=== PATIENT | male | born 1980 | race Caucasian/White ===

== ENCOUNTER → 2022-06-23 07:21 | Outpatient (CLI) | payer OTHER, MEDICAID, SELFPAY ==
[2022-06-23 08:29] LABS: Hemoglobin A1C% w Est Avg Glu 5.4 % (4.0-6.0)
[2022-06-23 08:54] LABS: Alanine Aminotransferase 118 IU/L (<50); Albumin 4.3 g/dL (3.5-5.0); Albumin Globulin Ratio 1.7 (1.0-2.8); Alkaline Phosphatase 61 U/L (38-126); Aspartate Aminotransferase 52 IU/L (17-59); BUN Creatinine Ratio 21.6 (6-22); Bilirubin Total 0.5 mg/dL (0.2-1.3); Blood Urea Nitrogen 16 mg/dL (9-20); Calcium 9.1 mg/dL (8.4-10.2); Carbon Dioxide 27 mmol/L (22-32); Chloride 101 mmol/L (98-107); Cholesterol 225 mg/dL (140-199); Estimated Glomerular Filt Rate > 60 mL/min (>60); Globulin 2.5 g/dL (1.7-4.1); Glucose 107 mg/dL (70-100); HDL Cholesterol 58 mg/dL (40-60); HEMOLYSIS < 15 (0-50); LDL Cholesterol Calculated 127 mg/dL (<100); Potassium 4.5 mmol/L (3.4-5.1); Sodium 137 mmol/L (137-145); Total Protein 6.8 g/dL (6.3-8.2); Triglycerides 202 mg/dL (35-150)
== END ==
PROVIDERS: PCP Family Medicine; Referring Provider Family Medicine; Visit Provider Family Medicine
DX: F07.81 Postconcussional syndrome (principal); I10 Essential (primary) hypertension; Z13.1 Encounter for screening for diabetes mellitus
CPT/HCPCS: 36415; 80053; 80061; 83036

== ENCOUNTER 2022-07-07 01:45 | Emergency (ER) | payer OTHER, MEDICAID, SELFPAY ==
[2022-07-07] VITALS (7 sets, daily range): BP systolic 124–154; BP diastolic 82–103; PULSE 59–72; RESP 4–18; TEMP 36.4; O2SAT 94–97; BMI 30.9
--- NOTE | 2022-07-07 02:06 | DI.RAD.S_ITS ---
PROCEDURE: XR CHEST 1V INDICATIONS: chest pain TECHNIQUE: One view of the chest was acquired. COMPARISON: None. FINDINGS: Surgical changes and devices: None. Lungs and pleura: Lungs are clear. No pleural effusions or pneumothorax. Mediastinum: Mediastinal contours appear normal. Heart size is normal. Bones and chest wall: No suspicious bony lesions. Overlying soft tissues appear unremarkable. IMPRESSION: No acute cardiopulmonary process. Dictated by: Kenn Fernández M.D. on 07/07/2022 at 8:10 Approved by: Kenn Fernández M.D. on 07/07/2022 at 8:11
--- NOTE | 2022-07-07 02:09 | ED.CHESTPAIN ---
HPI - Chest Pain General Chief Complaint: Chest Pain Stated Complaint: chest pain Time Seen by Provider: 07/07/22 01:58 Source: patient and family Mode of arrival: Ambulatory Limitations: no limitations History of Present Illness HPI narrative: Patient is a 41-year-old male history of concussion syndrome, hypertension presenting today with left-sided chest pain. He reports that he is had some stress he is working on some legal documents tonight something to do with his children. He was able to rest for couple of hours got up and was dressing again. reports that he was sleeping with his CPAP on when she thought he stopped breathing and then there might have been some shaking of his left arm. He then woke up with left sided chest discomfort which she describes as sharp and stabbing. It is nonradiating. He feels like his whole left body is numb and tingling. He sometimes feel like he is short of breath he is not nauseous or diaphoretic. Patient had this for. He reports that he just started losartan tonight with his 1st dose. He denies any tongue swelling lip swelling. Related Data Home Medications Medication Instructions Recorded Confirmed metoprolol succinate 25 mg 25 mg PO BID 06/22/22 06/22/22 tablet,extended release 24 hr Previous Rx's Medication Instructions Recorded losartan 25 mg tablet 25 mg PO DAILY blood pressure #90 07/05/22 tabs Allergies Allergy/AdvReac Type Severity Reaction Status Date / Time No Known Drug Allergies Allergy Unverified 06/22/22 09:55 Review of Systems Review of Systems ROS Unobtainable: All systems reviewed & are unremarkable except as noted in HPI and below Patient History Medical History Benign essential HTN MALLORIE on CPAP Post concussion syndrome Stress reaction Social History Smoking Status: Never smoker Smoking Status: Never smoker Substance Use Type: marijuana Exam Initial Vital Signs Initial Vital Signs: Vital Signs Temperature 97.5 F L 07/07/22 01:50 Pulse Rate 72 07/07/22 01:50 Respiratory Rate 18 07/07/22 01:50 Blood Pressure 154/103 H 07/07/22 01:50 Pulse Oximetry 97 07/07/22 01:50 Oxygen Delivery Method Room Air 07/07/22 01:50 GENERAL: Alert 41-year-old male and in [no acute] distress. HEENT: Head atraumatic,EOMI, pupils reactive, face symmetric, [moist] mucous membranes CARDIOVASCULAR: Regular rate and rhythm without murmurs, rubs or gallops. RESPIRATORY: Breath sounds equal bilaterally, no wheezes rales or rhonchi. ABDOMEN: Soft, nontender. Normoactive bowel sounds all 4 quadrants. No guarding or rebound. EXTREMITIES: Normal range of motion, no clubbing or edema. Neurovascularly intact NEUROLOGICAL: Alert and oriented x4.Normal gait and speech. Cranial nerves II through XII grossly intact. SKIN: Warm, dry, no laceration, no petechiae, no rashes or lesions. Scores HEART Score Heart Score history: Slightly Suspicious Heart Score EKG: Normal Heart Score Age: < 45 years old Heart Score risk factors: No known risk factors Heart Score troponin: < or = to normal limit Heart Score Total: 0 Course Orders Ordered: ED Orders 07/07/22 EKG-12 Lead Routine EKG-12 Lead Routine 07/07/22 01:50 Complete Blood Count AUTO DIFF Stat Comprehensive Metabolic Panel Stat Lipase Stat Magnesium Stat PTT Partial Thromboplastin Jamel Stat Prothrombin Time INR Stat Troponin & CK Cardiac Panel Stat 07/07/22 02:06 XR chest 1V Stat 07/07/22 03:55 Trop I [Troponin I] Stat Discontinued Medications Aspirin (Aspirin 81 Mg Chew Tab) 324 mg PO NOW ONE Stop: 07/07/22 02:07 Last Admin: 07/07/22 02:10 Dose: 324 mg Documented By: ILENE Vital Signs Vital signs: Vital Signs - 8 hr 07/07/22 01:50 07/07/22 02:08 07/07/22 02:30 Temperature 97.5 F L Pulse Rate 72 62 Respiratory Rate 18 4 L Blood Pressure 154/103 H 129/86 Pulse Oximetry 97 96 Oxygen Delivery Method Room Air 07/07/22 02:30 07/07/22 03:00 07/07/22 03:00 Temperature Pulse Rate 63 59 L Respiratory Rate 9 L 12 Blood Pressure 140/90 Pulse Oximetry 96 94 Oxygen Delivery Method 07/07/22 03:30 07/07/22 03:30 07/07/22 04:00 Temperature Pulse Rate 60 Respiratory Rate 12 Blood Pressure 124/82 126/83 Pulse Oximetry 94 Oxygen Delivery Method 07/07/22 04:00 07/07/22 04:30 07/07/22 04:30 Temperature Pulse Rate 64 67 Respiratory Rate 10 L 10 L Blood Pressure 129/86 Pulse Oximetry 94 95 Oxygen Delivery Method MDM - Chest Pain Lab Data 07/07/22 01:50 07/07/22 01:50 Labs: Lab Results 07/07/22 07/07/22 07/07/22 Range/Units 01:50 01:50 01:50 WBC 9.8 (4.5-11.0) X10^3/uL RBC 5.05 (4.5-5.9) X10^6/uL Hgb 16.5 (13.5-17.5) g/dL Hct 47.3 (41-53) % MCV 93.7 (80-100) fL MCH 32.8 (26-34) PG MCHC 34.9 (30-36) % RDW 12.3 (11.6-14.8) % Plt Count 248 (150-400) X10^3/uL Neut % (Auto) 47.8 L (50-75) % Lymph % (Auto) 36.0 (25-40) % [place] % (Auto) 7.1 (3-14) % Eos % (Auto) 8.0 H (2-4) % Baso % (Auto) 1.1 (0-2) % Neut # (Auto) 4700 (5626-1982) /uL Lymph # (Auto) 3500 (9210-3306) /uL [place] # (Auto) 700 (0-900) /uL Eos # (Auto) 800 H (0-450) /uL Baso # (Auto) 100 (0-100) /uL PT 11.7 (10.1-12.7) SECONDS INR 1.0 (0.9-1.3) APTT 33 (26-36) SECONDS Sodium 136 L (137-145) mmol/L Potassium 4.1 (3.4-5.1) mmol/L Chloride 100 (98-107) mmol/L Carbon Dioxide 25 (22-32) mmol/L BUN 15 (9-20) mg/dL Creatinine 0.66 (0.66-1.25) mg/dL Estimated GFR > 60 (>60) mL/min BUN/Creatinine Ratio 22.7 H (6-22) Glucose 98 (70-100) mg/dL Calcium 9.3 (8.4-10.2) mg/dL Magnesium 1.9 (1.6-2.3) mg/dL Total Bilirubin 0.9 (0.2-1.3) mg/dL AST 38 (17-59) IU/L ALT 97 H (<50) IU/L Alkaline Phosphatase 62 (38-126) U/L Total Creatine Kinase 110 (55-170) U/L CK-MB (CK-2) 0.47 (<2.37) ng/mL CK-MB (CK-2) Rel Index 0.4 L (1.5-5.0) % Troponin I < 0.012 (0.01-0.034) ng/mL Total Protein 7.3 (6.3-8.2) g/dL Albumin 4.5 (3.5-5.0) g/dL Globulin 2.8 (1.7-4.1) g/dL Albumin/Globulin Ratio 1.6 (1.0-2.8) Lipase 68 (23-300) U/L / Range/Units 03:55 WBC (4.5-11.0) X10^3/uL RBC (4.5-5.9) X10^6/uL Hgb (13.5-17.5) g/dL Hct (41-53) % MCV (80-100) fL MCH (26-34) PG MCHC (30-36) % RDW (11.6-14.8) % Plt Count (150-400) X10^3/uL Neut % (Auto) (50-75) % Lymph % (Auto) (25-40) % [place] % (Auto) (3-14) % Eos % (Auto) (2-4) % Baso % (Auto) (0-2) % Neut # (Auto) (7418-6147) /uL Lymph # (Auto) (9820-4609) /uL [place] # (Auto) (0-900) /uL Eos # (Auto) (0-450) /uL Baso # (Auto) (0-100) /uL PT (10.1-12.7) SECONDS INR (0.9-1.3) APTT (26-36) SECONDS Sodium (137-145) mmol/L Potassium (3.4-5.1) mmol/L Chloride (98-107) mmol/L Carbon Dioxide (22-32) mmol/L BUN (9-20) mg/dL Creatinine (0.66-1.25) mg/dL Estimated GFR (>60) mL/min BUN/Creatinine Ratio (6-22) Glucose (70-100) mg/dL Calcium (8.4-10.2) mg/dL Magnesium (1.6-2.3) mg/dL Total Bilirubin (0.2-1.3) mg/dL AST (17-59) IU/L ALT (<50) IU/L Alkaline Phosphatase (38-126) U/L Total Creatine Kinase (55-170) U/L CK-MB (CK-2) (<2.37) ng/mL CK-MB (CK-2) Rel Index (1.5-5.0) % Troponin I < 0.012 (0.01-0.034) ng/mL Total Protein (6.3-8.2) g/dL Albumin (3.5-5.0) g/dL Globulin (1.7-4.1) g/dL Albumin/Globulin Ratio (1.0-2.8) Lipase (23-300) U/L ECG Data Interpretation: Sinus rhythm rate 61 GA interval 162 QRS [address] changes partial right bundle-branch block Sinus rhythm rate 60 GA 66 QRS [address] changes similar to previous MDM Narrative Medical decision making narrative: Patient 41-year-old male 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 History of hypotension mobile pressure is controlled. No EKG changes. Blood work is reassuring without leukocytosis electrolyte abnormality and 2- troponins. Chest x-ray does not show any abnormality. Patient presentation is atypical for acute coronary syndrome. reports patient not breathing while sleeping on CPAP consistent with his obstructive sleep apnea. He had some shaking in his arm but does not quite sound like a seizure not rigid. I think patient is having some anxiety Discharge Plan Departure Patient Disposition: Home Clinical Impression: Atypical chest pain Instructions: DI for Atypical Chest Pain Activity Restrictions/Additional Instructions: *You have been diagnosed with atypical chest pain *What to do: At this time I think your chest pain is related to fresh. However he still encourage you to get further workup and like stress test and echocardiogram please talk to your PCP in regard to this *Continue to take medications as directed *Follow up with your primary care provider in 2-3 days or call [phone] *Return to ER if you should have increasing chest pain shortness of breath palpitations dizziness lightheadedness [or] any new, worsening or concerning symptoms Prescriptions: No Action losartan 25 mg tablet 25 mg PO DAILY Qty: 90 3RF metoprolol succinate 25 mg tablet extended release 24 hr 25 mg PO BID Referrals: Nathan Rodriguez DO [Primary Care Provider] - Stand Alone Forms: Patient Portal/API
[2022-07-07] MEDS: ASPIRIN 81 MG CHEW TAB 324 MG PO (02:10)
[2022-07-07 02:13] LABS: Add Manual Diff / Slide Review NO; Basophils Absolute Auto 100 /uL (0-100); Basophils Percent Auto 1.1 % (0-2); Eosinophils Absolute Auto 800 /uL (0-450); Hematocrit 47.3 % (41-53); Hemoglobin 16.5 g/dL (13.5-17.5); Lymphocytes Absolute Auto 3500 /uL (1100-4500); Mean Corpuscular HGB Conc 34.9 % (30-36); Mean Corpuscular Hemoglobin 32.8 PG (26-34); Mean Corpuscular Volume 93.7 fL (80-100); Monocytes Absolute Auto 700 /uL (0-900); Monocytes Percent Auto 7.1 % (3-14); Neutrophils Absolute Auto 4700 /uL (1500-7000); Neutrophils Percent Auto 47.8 % (50-75); Platelet Count 248 X10^3/uL (150-400); Red Blood Cell Count 5.05 X10^6/uL (4.5-5.9); Red Cell Distribution Width 12.3 % (11.6-14.8); White Blood Cell Count 9.8 X10^3/uL (4.5-11.0)
[2022-07-07 02:15] LABS: Prothrombin Time 11.7 SECONDS (10.1-12.7)
[2022-07-07 02:17] LABS: PTT Partial Thromboplastin Tim 33 SECONDS (26-36)
[2022-07-07 02:20] LABS: Alanine Aminotransferase 97 IU/L (<50); Albumin 4.5 g/dL (3.5-5.0); Albumin Globulin Ratio 1.6 (1.0-2.8); Alkaline Phosphatase 62 U/L (38-126); Aspartate Aminotransferase 38 IU/L (17-59); BUN Creatinine Ratio 22.7 (6-22); Bilirubin Total 0.9 mg/dL (0.2-1.3); Blood Urea Nitrogen 15 mg/dL (9-20); Calcium 9.3 mg/dL (8.4-10.2); Carbon Dioxide 25 mmol/L (22-32); Chloride 100 mmol/L (98-107); Creatine Kinase 110 U/L (55-170); Estimated Glomerular Filt Rate > 60 mL/min (>60); Globulin 2.8 g/dL (1.7-4.1); Glucose 98 mg/dL (70-100); HEMOLYSIS < 15 (0-50); Lipase 68 U/L (23-300); Magnesium 1.9 mg/dL (1.6-2.3); Potassium 4.1 mmol/L (3.4-5.1); Sodium 136 mmol/L (137-145); Total Protein 7.3 g/dL (6.3-8.2)
[2022-07-07 02:31] LABS: Troponin I < 0.012 ng/mL (0.01-0.034)
[2022-07-07 02:35] LABS: CKMB % Relative Index 0.4 % (1.5-5.0); Creatine Kinase MB 0.47 ng/mL (<2.37)
[2022-07-07 04:26] LABS: Troponin I < 0.012 ng/mL (0.01-0.034)
== END 2022-07-07 04:53 | disposition home or self-care (01) ==
PROVIDERS: Emergency Provider Emergency Medicine; PCP Family Medicine
DX: R07.89 Other chest pain (principal); F41.9 Anxiety disorder, unspecified
CPT/HCPCS: 36415; 71045; 80053; 82550; 82553; 83690; 83735; 84484; 85025; 85610; 85730; 93005; 93010; 99284

== ENCOUNTER → 2023-01-06 17:49 | Outpatient (CLI) | payer OTHER, MEDICAID, SELFPAY ==
--- NOTE | 2023-01-06 17:50 | DI.RAD.S_ITS ---
PROCEDURE: XR CERVICAL SPINE MIN 6V INDICATIONS: Neck pain TECHNIQUE: 7 views of the cervical spine were acquired, including flexion extension views and bilateral oblique views. COMPARISON: None. FINDINGS: Bones: No fractures or dislocations to the C7-T1 level. No suspicious bony lesions. On the neutral position image, there is overall straightening of the normal cervical lordosis. There is limited range of motion between flexion and extension, with preserved normal bony alignment. On oblique images, no significant neural foraminal narrowing can be seen. Soft tissues: Prevertebral soft tissues are normal in thickness. The visualized lung apices are unremarkable. IMPRESSION: Negative for fracture by plain film. Straightening of the normal cervical lordosis is seen, which is commonly observed in patients with muscular spasm. Limited range of motion, without abnormal subluxation. If it would be helpful for clinical management decision making, please consider a dedicated cervical spine MRI for further evaluation (assuming that there is no contraindication). Dictated by: Shaji Parra M.D. on 01/07/2023 at 1:02 Approved by: Shaji Parra M.D. on 01/07/2023 at 1:04
== END ==
PROVIDERS: PCP Family Medicine; Referring Provider Nurse Practitioner Family; Visit Provider Nurse Practitioner Family
DX: M54.2 Cervicalgia (principal)
CPT/HCPCS: 72052

== ENCOUNTER → 2023-01-17 15:37 | Outpatient (CLI) | payer OTHER, MEDICAID, SELFPAY ==
--- NOTE | 2023-01-17 15:39 | DI.RAD.S_ITS ---
PROCEDURE: XR CERVICAL SPINE 2V OR 3V INDICATIONS: f/u neck injury - compare to prior TECHNIQUE: 3 view(s) of the cervical spine were acquired. COMPARISON: [facility], CR, XR CERVICAL SPINE MIN 6V, 01/06/2023, 17:57. FINDINGS: Bones: No fractures or dislocations to the T1 level. The lateral masses of C1 appear intact on the odontoid view. No suspicious bony lesions. Soft tissues: No prevertebral soft tissue swelling. IMPRESSION: No fracture. No acute osseous lesion. If symptoms and/or clinical suspicion for pathology persists, evaluation with MRI should be considered for further assessment. Dictated by: Tomeka Lopez MD, PhD on 01/17/2023 at 16:03 Approved by: Tomeka Lopez MD, PhD on 01/17/2023 at 16:04
== END ==
PROVIDERS: PCP Family Medicine; Referring Provider Physician Assistant; Visit Provider Physician Assistant
DX: M54.2 Cervicalgia (principal)
CPT/HCPCS: 72040

== ENCOUNTER → 2023-06-26 11:01 | Outpatient (CLI) | payer OTHER, MEDICAID, SELFPAY ==
--- NOTE | 2023-06-26 11:05 | DI.RAD.S_ITS ---
P the ROCEDURE: XR KNEE RT 3V INDICATIONS: pain TECHNIQUE: 3 views of the knee were acquired. COMPARISON: None. FINDINGS: Bones: No fractures or dislocations. Normal alignment. Joint spaces are maintained. No suspicious bony lesions. Soft tissues: No joint effusion. No suspicious soft tissue calcifications. IMPRESSION: No acute bony abnormality or significant effusion. Dictated by: Octavio George M.D. on 06/26/2023 at 13:08 Approved by: Octavio George M.D. on 06/26/2023 at 13:08
--- NOTE | 2023-06-26 11:05 | DI.RAD.S_ITS ---
PROCEDURE: XR SHOULDER RT MIN 2V INDICATIONS: pain TECHNIQUE: 3 views of the shoulder were acquired. COMPARISON: None. FINDINGS: Bones: No fractures or dislocations. Normal glenohumeral alignment. Acromioclavicular and coracoclavicular intervals are maintained. No suspicious bony lesions. Visualized ribs appear intact. Soft tissues: No suspicious soft tissue calcifications. IMPRESSION: No acute bony abnormality. Joint spaces are maintained. Dictated by: Octavio George M.D. on 06/26/2023 at 13:09 Approved by: Octavio George M.D. on 06/26/2023 at 13:09
== END ==
PROVIDERS: PCP Family Medicine; Referring Provider Family Medicine; Visit Provider Family Medicine
DX: M25.561 Pain in right knee (principal); M70.40 Prepatellar bursitis, unspecified knee; M25.511 Pain in right shoulder
CPT/HCPCS: 73030; 73562

== ENCOUNTER → 2023-06-27 10:10 | Outpatient (CLI) | payer OTHER, MEDICAID, SELFPAY ==
[2023-06-27 11:10] LABS: Alanine Aminotransferase 77 IU/L (<50); Albumin 4.5 g/dL (3.5-5.0); Albumin Globulin Ratio 1.6 (1.0-2.8); Alkaline Phosphatase 62 U/L (38-126); Aspartate Aminotransferase 41 IU/L (17-59); BUN Creatinine Ratio 21.3 (6-22); Bilirubin Total 0.8 mg/dL (0.2-1.3); Blood Urea Nitrogen 16 mg/dL (9-20); Calcium 9.3 mg/dL (8.4-10.2); Carbon Dioxide 31 mmol/L (22-32); Chloride 104 mmol/L (98-107); Cholesterol 194 mg/dL (140-199); Estimated Glomerular Filt Rate > 60 mL/min (>60); Globulin 2.8 g/dL (1.7-4.1); Glucose 98 mg/dL (70-100); HDL Cholesterol 50 mg/dL (40-60); HEMOLYSIS < 15 (0-50); LDL Cholesterol Calculated 120 mg/dL (<100); Sodium 139 mmol/L (137-145); Total Protein 7.3 g/dL (6.3-8.2); Triglycerides 121 mg/dL (35-150)
[2023-06-27 11:11] LABS: Potassium 4.4 mmol/L (3.4-5.1)
== END ==
PROVIDERS: PCP Family Medicine; Referring Provider Family Medicine; Visit Provider Family Medicine
DX: I10 Essential (primary) hypertension (principal); E78.2 Mixed hyperlipidemia; M25.561 Pain in right knee; M70.40 Prepatellar bursitis, unspecified knee; M25.519 Pain in unspecified shoulder
CPT/HCPCS: 36415; 80053; 80061; 83036

== ENCOUNTER 2023-09-28 15:31 | Emergency (ER) | payer OTHER, MEDICAID, SELFPAY ==
[2023-09-28 15:49] VITALS: BP 155/100; PULSE 66; RESP 17; TEMP 36.6; O2SAT 96; BMI 31.6
--- NOTE | 2023-09-28 15:53 | DI.RAD.S_ITS ---
PROCEDURE: XR FINGER LT MIN 2V INDICATIONS: wound TECHNIQUE: AP hand, 2 views of the 2nd finger(s) acquired. COMPARISON: None. FINDINGS: Bones: Minimally displaced 2nd tuft fracture. Soft tissues: No suspicious soft tissue calcifications. Soft tissue swelling and irregularity of the 2nd distal phalanx tip. IMPRESSION: Minimally displaced 2nd tuft fracture. Dictated by: Kenn Fernández M.D. on 09/28/2023 at 16:35 Approved by: Kenn Fernández M.D. on 09/28/2023 at 16:36
--- NOTE | 2023-09-28 15:54 | DI.RAD.S_ITS ---
PROCEDURE: XR WRIST LT MIN 3V INDICATIONS: injury TECHNIQUE: 4 views of the wrist were acquired. COMPARISON: None. FINDINGS: Bones: Displaced ulnar styloid fracture. Soft tissues: No suspicious soft tissue calcifications. IMPRESSION: Displaced ulnar styloid fracture. Dictated by: Kenn Fernández M.D. on 09/28/2023 at 16:36 Approved by: Kenn Fernández M.D. on 09/28/2023 at 16:37
--- NOTE | 2023-09-28 18:59 | ED.WOUNDLAC ---
HPI - Wound/Laceration General Chief Complaint: Wound/Laceration Stated Complaint: lt pointer finger lac Time Seen by Provider: 09/28/23 18:55 Source: patient Mode of arrival: Ambulatory History of Present Illness HPI narrative: 43-year-old gentleman presents after fingertip injury with a sawzall/precipitating tool right middle finger. Also injured his left wrist 8 weeks ago is requesting an x-ray Related Data Previous Rx's Medication Instructions Recorded cyclobenzaprine 5 mg tablet 5 mg PO TID PRN muscle spasm #30 01/17/23 tabs naproxen 500 mg tablet 500 mg PO BID PRN pain #40 tabs 01/17/23 metoprolol succinate 25 mg 25 mg PO BID #180 tabs 06/26/23 tablet,extended release 24 hr cephalexin 500 mg capsule 500 mg PO TID #21 caps 09/28/23 oxycodone-acetaminophen 5 mg-325 1 tab PO Q6H PRN pain #7 tabs 09/28/23 mg tablet Allergies Allergy/AdvReac Type Severity Reaction Status Date / Time No Known Drug Allergies Allergy Verified 09/28/23 15:52 Review of Systems Review of Systems Narrative: Pertinent positive and negative findings as per HPI Patient History Medical History (Updated 09/28/23 @ 20:55 by Mary Camacho MD) Mixed hyperlipidemia TBI (traumatic brain injury) Sleep apnea (~2020) Depression (~2020) Anxiety (~2020) Migraines (~2006) Shoulder pain (~2009) Ankle pain (~1999) Chronic back pain (~2014) Vertigo (~2020) Hemorrhoid (~2006) Diverticular disease (~2006) Stress reaction Post concussion syndrome Benign essential HTN (~2006) MALLORIE on CPAP Social History Smoking Status: Never smoker Smoking Status: Never smoker Substance Use Type: marijuana Exam Initial Vital Signs Initial Vital Signs: Vital Signs Temperature 98 F 09/28/23 15:49 Pulse Rate 66 09/28/23 15:49 Respiratory Rate 17 09/28/23 15:49 Blood Pressure 155/100 H 09/28/23 15:49 Pulse Oximetry 96 09/28/23 15:49 Oxygen Delivery Method Room Air 09/28/23 15:49 General: Alert appropriate in no acute distress Respiratory: Able to speak in full sentences, no obvious respiratory distress Skin: No obvious rashes, warm and dry Neurologic: Grossly intact no obvious asymmetries or abnormalities Psych: appropriate insight and affect, cooperative Extremity: Distal left index finger with traumatic injury. Distal portion of the nail has been removed. There is a mild amount of skin that is missing at the ulnar edge of the nail. The nail bed itself is not affected. There is a tuft fracture that is appreciate a x-ray with no obvious bone shards appreciated on exam Procedures Laceration Repair Left index finger: Site: hand Side (If applicable): left Size (cm): 3 Description: flap and irregular Depth: involves muscle layer Local Anesthetic: lidocaine 1% Amount of anesthesia used (mL): 4 (Digital block) Pre-repair: wound explored, irrigated extensively, deep structures intact (Distal portion of the phalanx can be palpated through the wound) and wound margins revised Skin layer closed with: nylon Number of sutures: 3 Technique: horizontal mattress (Remaining portion of the tip of the nail held in place with sutures through the remaining nail plate with excellent results) Course Orders Ordered: Discontinued Medications Bacitracin (Bacitracin Oint 0.9 Gm Pckt) 1 applic TOP NOW ONE Stop: 09/28/23 20:51 Last Admin: 09/28/23 20:52 Dose: 1 applic Documented By: COLIN Cephalexin HCl (Cephalexin 250 Mg Capsule) 500 mg PO NOW ONE Stop: 09/28/23 19:18 Last Admin: 09/28/23 20:27 Dose: 500 mg Documented By: COLIN Ibuprofen (Ibuprofen 400 Mg Tablet) 400 mg PO NOW ONE Stop: 09/28/23 19:18 Last Admin: 09/28/23 20:27 Dose: 400 mg Documented By: COLIN Lidocaine HCl (Lidocaine 1% 20 Ml) 20 ml INJ INTRA-OP ONE Stop: 09/28/23 20:01 Last Admin: 09/28/23 20:55 Dose: 20 ml Documented By: COLIN Oxycodone/Acetaminophen (Oxycodone/Acetaminophen 5/325 Tablet) 1 tab PO NOW ONE Stop: 09/28/23 19:18 Last Admin: 09/28/23 20:27 Dose: 1 tab Documented By: COLIN Vital Signs Vital signs: Vital Signs - 8 hr 09/28/23 15:49 Temperature 98 F Pulse Rate 66 Respiratory Rate 17 Blood Pressure 155/100 H Pulse Oximetry 96 Oxygen Delivery Method Room Air MDM - Wound/Laceration MDM Narrative Medical decision making narrative: CC: Injury to the index finger left distal tuft. Avulsion of the very tip of the finger, distal tuft fracture, nail bed itself is not involved distal portion of the nail has been removed Data collected from: patient Differential considered: Minor wound, large wound, open fracture, no fracture, joint involvement Exam documented above, pertinent findings include: Distal portion of the finger nail bed still intact, tuft fracture to the distal portion of the phalanx Imaging studies independently reviewed: X-ray of the right middle finger shows a minimally displaced tuft fracture X-ray of the left wrist shows a displaced ulnar styloid fracture Treatments: Keflex, ibuprofen, Percocet, tetanus status is up-to-date and not repeated. Suture repair as above Discussion: 43-year-old gentleman with fingertip avulsion injury with tuft fracture. Wound is closed with good anesthetic results. Nail bed itself is not involved. Patient will complete 7 days of Keflex for technically open fracture of the distal phalanx. Protective dressing is applied. Reviewed signs and symptoms of complications and when he would need to return. Sutures will need to come out on or about 7-10 days. Questions are answered and he is safe for discharge Discharge Plan Departure Patient Disposition: Home Clinical Impression: Open fracture of tuft of distal phalanx of finger Laceration of finger nail bed Qualifiers: Encounter type: initial encounter Qualified Code(s): S61.319A - Laceration without foreign body of unspecified finger with damage to nail, initial encounter Distal radius fracture, left Qualifiers: Encounter type: subsequent encounter Fracture type: closed Fracture morphology: other fracture Fracture healing: with nonunion Qualified Code(s): S52.592K - Other fractures of lower end of left radius, subsequent encounter for closed fracture with nonunion Instructions: DI for Laceration Repair -- Finger Activity Restrictions/Additional Instructions: Thank you for coming in today Fortunately, the saw got to just the tip of your finger, there were tip of the bone was involved. The end of your nail was removed. The growing part of your nail, the bed is not involve so the nail will likely grow out fairly normally. I used sutures to close the end of the finger over the tip of the bone and secured it to the remaining nail. The stitches will need to come out on or about October 04 or . You can return to the emergency department or see your primary care physician for this. Please keep antibiotic ointment over the wound with a dressing over it. I have given you a fingertips splint so that you are not continually bumping the wound. If you notice any signs of increasing redness, smell, drainage or worsening pain as it is healing you need to return to the ER You are up-to-date on your tetanus I do want you to complete 7 days of Keflex given the fact that the tip of your finger bone was exposed Using 400 mg of ibuprofen (2 [id number] pills) and 1 Tylenol every 6 hours can be very helpful in controlling pain. For severe pain you can use 400 mg of ibuprofen and 1 Percocet. Percocet is a narcotic, can cause addiction and will cause constipation. Please use sparingly. Prescription for the narcotic as well as the antibiotic are both electronically transmitted to [facility] for you If you find that you are getting worse or develop any new symptoms, please feel free to return to the emergency department for further evaluation. Prescriptions: New cephalexin 500 mg capsule 500 mg PO TID Qty: 21 0RF oxycodone-acetaminophen 5-325 mg tablet 1 tab PO Q6H PRN (Reason: pain) Qty: 7 0RF No Action cyclobenzaprine 5 mg tablet 5 mg PO TID PRN (Reason: muscle spasm) Qty: 30 0RF naproxen 500 mg tablet 500 mg PO BID PRN (Reason: pain) Qty: 40 0RF metoprolol succinate 25 mg tablet extended release 24 hr 25 mg PO BID Qty: 180 3RF Referrals: Nathan Rodriguez DO [Primary Care Provider] - Stand Alone Forms: Patient Portal/API
[2023-09-28] MEDS: OXYCODONE/ACETAMINOPHEN 5/325 TABLET 1 TAB PO (20:27)
[2023-09-28] MEDS: IBUPROFEN 400 MG TABLET PO (20:27)
[2023-09-28] MEDS: cephALEXin 250 MG CAPSULE 500 MG PO (20:27)
[2023-09-28] MEDS: BACITRACIN OINT 0.9 GM PCKT 1 APPLIC TOP (20:52)
[2023-09-28] MEDS: LIDOCAINE 1% 20 ML INJ (20:55)
--- NOTE | 2023-09-28 21:08 | PC.NURSE ---
Cleansed wound with NS. Applied bacitracin and wrapped with gauze roll.
[2023-09-28 21:11] VITALS: BP 131/87; PULSE 59; RESP 18; TEMP 36.9; O2SAT 99
== END 2023-09-28 21:13 | disposition home or self-care (01) ==
PROVIDERS: Emergency Provider Emergency Medicine; PCP Family Medicine
DX: S62.632B Displaced fracture of distal phalanx of right middle finger, initial encounter for open fracture (principal); S52.592K Other fractures of lower end of left radius, subsequent encounter for closed fracture with nonunion; W27.0XXA Contact with workbench tool, initial encounter; X58.XXXD Exposure to other specified factors, subsequent encounter
CPT/HCPCS: 12002; 73110; 73140; 99283

== ENCOUNTER 2023-11-09 15:23 | Observation (INO) | payer OTHER, MEDICAID, SELFPAY ==
[2023-11-09 15:26] VITALS: BP 138/88; PULSE 84; RESP 16; TEMP 36.8; O2SAT 96; BMI 30.9
--- NOTE | 2023-11-09 15:53 | DI.CT.S_ITS ---
PROCEDURE: CT ABDOMEN PELVIS W CON INDICATIONS: Abdominal pain TECHNIQUE: After the administration of intravenous contrast, axial sections acquired from the lung bases to the pubic symphysis. Coronal and sagittal reformats were performed. For radiation dose reduction, the following was used: automated exposure control, adjustment of mA and/or kV according to patient size. COMPARISON: None. FINDINGS: Image quality: Diagnostic. Lower Chest: No significant findings. ABDOMEN: Liver: No solid mass. Gallbladder: Cholelithiasis without wall thickening or adjacent fat stranding to suggest acute cholecystitis. Gallbladder hydrops. Biliary ducts: No biliary dilation. Pancreas: No ductal dilation. Spleen: Size is within normal limits. Adrenal Glands: No adrenal nodules. Kidneys and Ureters: No hydronephrosis. No solid mass. No complex renal cystic lesion which requires follow up. Stomach and Bowel: Normal colonic caliber, without significant wall thickening. Inflamed diverticulum of the jejunum (series 2, image 5). Colonic diverticulosis without evidence of diverticulitis. Peritoneum: No abnormal intraperitoneal fluid. No free air. Ventral Wall: No significant ventral hernia. Abdominal Nodes: No retroperitoneal or mesenteric adenopathy by size criteria. Vessels: Aorta and inferior vena cava are normal in size. PELVIS: Pelvic Organs: Unremarkable. Bladder: No bladder wall thickening, accounting for underdistention. Pelvic Nodes: No enlarged lymph nodes. Miscellaneous: No inguinal hernias are seen. Bones: No aggressive osseous abnormality. IMPRESSION: Inflamed diverticulum of the jejunum. 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 This could confirmed with a tailored nuclear medicine pertechnetate study. Cholelithiasis with gallbladder hydrops but no wall thickening. Findings may indicate early acute cholecystitis. No choledocholithiasis. Dictated by: Kenn Fernández M.D. on 11/09/2023 at 16:09 Approved by: Kenn Fernández M.D. on 11/09/2023 at 16:14
[2023-11-09 15:55] LABS: Add Manual Diff / Slide Review NO; Basophils Absolute Auto 100 /uL (0-100); Basophils Percent Auto 0.7 % (0-2); Eosinophils Absolute Auto 300 /uL (0-450); Eosinophils Percent Auto 2.4 % (2-4); Hematocrit 46.6 % (41-53); Hemoglobin 16.3 g/dL (13.5-17.5); Lymphocytes Absolute Auto 2600 /uL (1100-4500); Lymphocytes Percent Auto 22.3 % (25-40); Mean Corpuscular HGB Conc 35.1 % (30-36); Mean Corpuscular Hemoglobin 33.3 PG (26-34); Mean Corpuscular Volume 94.9 fL (80-100); Monocytes Absolute Auto 900 /uL (0-900); Monocytes Percent Auto 7.5 % (3-14); Neutrophils Absolute Auto 7700 /uL (1500-7000); Neutrophils Percent Auto 67.1 % (50-75); Platelet Count 233 X10^3/uL (150-400); Red Blood Cell Count 4.91 X10^6/uL (4.5-5.9); Red Cell Distribution Width 12.4 % (11.6-14.8); White Blood Cell Count 11.5 X10^3/uL (4.5-11.0)
--- NOTE | 2023-11-09 15:56 | ED_ITS ---
HPI - Abdominal Pain <NATACHA Mcpherson - Last Filed: 11/09/23 19:02> General Chief Complaint: Abdominal Pain Stated Complaint: abd pain Time Seen by Provider: 11/09/23 15:49 Source: patient Mode of arrival: Ambulatory History of Present Illness HPI narrative: 43-year-old male, never smoker, presents to the emergency department with epigastric pain x1 day. Patient states that the pain has been so severe, that he has been doubled over. Patient reports that he has had a decreased appetite but has had a bowel. History of diverticulitis, but this feels different. Patient is concerned about his appendix. No reported abdominal surgeries. Related Data Previous Rx's Medication Instructions Recorded metoprolol succinate 25 mg 25 mg PO BID #180 tabs 06/26/23 tablet,extended release 24 hr c-pap supplies #1 ea 10/16/23 Allergies Allergy/AdvReac Type Severity Reaction Status Date / Time No Known Drug Allergies Allergy Verified 11/09/23 15:30 Review of Systems <NATACHA Mcpherson - Last Filed: 11/09/23 19:02> Review of Systems Narrative: Narrative: See HPI. GENERAL: Denies chills, fatigue, fever, sweats. HEENT: Denies sinus pain, ear pain, sore throat, difficulty swallowing, dizziness. RESPIRATORY: Denies dyspnea, cough, wheezing, sputum. CARDIOVASCULAR: Denies chest pain, palpitations, edema. GASTROINTESTINAL: Denies nausea, vomiting, diarrhea, constipation. Endorses epigastric abdominal pain. : Denies dysuria, frequency, incontinence, hematuria, urinary retention, flank pain. MSK: Denies weakness, joint pain, or bony pain. SKIN: Denies rash, skin lesions, or pruritis. NEUROLOGIC: Denies weakness, dizziness, headache, numbness, confusion. PSYCHIATRIC: No concerning psychosocial issues. Patient History <NATACHA Mcpherson - Last Filed: 11/09/23 19:02> Medical History Mixed hyperlipidemia TBI (traumatic brain injury) Depression (~2020) Anxiety (~2020) Migraines (~2006) Shoulder pain (~2009) Ankle pain (~1999) Chronic back pain (~2014) Vertigo (~2020) Hemorrhoid (~2006) Diverticular disease (~2006) Stress reaction Post concussion syndrome Benign essential HTN (~2006) MALLORIE on CPAP Social History Smoking Status: Never smoker Smoking Status: Never smoker Substance Use Type: does not use Exam <NATACHA Mcpherson - Last Filed: 11/09/23 19:02> Narrative Exam Narrative: Exam Narrative: GENERAL: This is a well-nourished, well-developed patient, in no acute distress. HEAD: Atraumatic. Normocephalic. EYES: Pupils equal round and reactive. Extraocular motions intact. No scleral icterus, injection or drainage. ENT: Nose without bleeding, purulent drainage. Throat without erythema, tonsillar hypertrophy or exudate. Uvula midline. Airway patent. TMs and canals clear. No sinus tenderness. NECK: Trachea midline. No JVD or lymphadenopathy. Nontender. CARDIOVASCULAR: Regular rate and rhythm without murmurs, peripheral pulses intact, cap refill <2 sec. RESPIRATORY: Breath sounds equal and clear bilaterally. No wheezes, rales, or rhonchi. No cough. No increased respiratory effort. No accessory muscle use. GASTROINTESTINAL: Abdomen soft, epigastric tenderness, nondistended without guarding or rebound. No suprapubic pain. No bruit auscultated. MSK: Moves all extremities. Normal range of motion, no clubbing or edema. Neurovascularly intact. NEURO: A&O x 3. SKIN: Warm, dry, no rashes or lesions noted. Initial Vital Signs Initial Vital Signs: Vital Signs Temperature 98.3 F 11/09/23 15:26 Pulse Rate 84 11/09/23 15:26 Respiratory Rate 16 11/09/23 15:26 Blood Pressure 138/88 11/09/23 15:26 Pulse Oximetry 96 11/09/23 15:26 Oxygen Delivery Method Room Air 11/09/23 15:26 Reviewed <Shandra Pitts MD - Last Filed: 11/09/23 19:42> Initial Vital Signs Initial Vital Signs: Vital Signs Temperature 98.3 F 11/09/23 15:26 Pulse Rate 84 11/09/23 15:26 Respiratory Rate 16 11/09/23 15:26 Blood Pressure 138/88 11/09/23 15:26 Pulse Oximetry 96 11/09/23 15:26 Oxygen Delivery Method Room Air 11/09/23 15:26 Course <NATACHA Mcpherson - Last Filed: 11/09/23 19:02> Orders Ordered: ED Orders 11/09/23 15:40 Complete Blood Count AUTO DIFF Stat Comprehensive Metabolic Panel Stat Lipase Stat 11/09/23 15:53 CT abdomen pelvis w con Stat 11/09/23 17:26 US abdomen limited Stat Hydrocodone Bitart/Acetaminophen (Hydrocodone/Acet 5/325 Tablet) 1 tab PO Q4H PRN PRN Reason: Pain, Moderate (4-6) Hydrocodone Bitart/Acetaminophen (Hydrocodone/Acet 5/325 Tablet) 2 tab PO Q4H PRN PRN Reason: Pain, Severe (7-10) Hydromorphone HCl (Hydromorphone 0.5 Mg Inj) 0.5 mg IV Q2H PRN PRN Reason: Pain, Severe (7-10) Lactated Ringer's (Lactated Ringers) 1,000 mls @ 100 mls/hr IV CONT SHANNON Lactated Ringer's (Lactated Ringers) 1,000 mls @ 100 mls/hr IV CONT SHANNON Ibuprofen (Ibuprofen 600 Mg Tablet) 600 mg PO Q6H PRN PRN Reason: Fever/Mild Pain (1-3) Naloxone HCl (Naloxone 0.4 Mg/Ml Vial) 0.2 mg IV Q2MIN PRN PRN Reason: Opiate Reversal Ondansetron HCl (Ondansetron 4 Mg/2 Ml Inj) 4 mg IV NOW PRN PRN Reason: Nausea And Vomiting Ondansetron HCl (Ondansetron 4 Mg Odt) 4 mg PO NOW PRN PRN Reason: Nausea And Vomiting Ondansetron HCl (Ondansetron 4 Mg/2 Ml Inj) 4 mg IV Q8HR PRN PRN Reason: Nausea And Vomiting Discontinued Medications Sodium Chloride (Normal Saline 0.9%) 500 mls @ 1,000 mls/hr IV BOLUS ONE Stop: 11/09/23 17:55 Last Infusion: 11/09/23 17:59 Dose: Infused Documented By: Admin: 11/09/23 17:39 Dose: 1,000 mls/hr Documented By: JIMMY Piperacillin Sod/Tazobactam (Sod 4.5 gm/ Sodium Chloride) 100 mls @ 200 mls/hr IV NOW ONE Stop: 11/09/23 18:55 Consultations Consultation #1: Dr. Shah, General Surgeon. Recommended admission to general surgery. Start patient on Zosyn and lactated Ringer's 100 mL an hour. Vital Signs Vital signs: Vital Signs - 8 hr 11/09/23 15:26 Temperature 98.3 F Pulse Rate 84 Respiratory Rate 16 Blood Pressure 138/88 Pulse Oximetry 96 Oxygen Delivery Method Room Air <Shandra Pitts MD - Last Filed: 11/09/23 19:42> Orders Ordered: ED Orders 11/09/23 15:40 Complete Blood Count AUTO DIFF Stat Comprehensive Metabolic Panel Stat Lipase Stat 11/09/23 15:53 CT abdomen pelvis w con Stat 11/09/23 17:26 US abdomen limited Stat Hydrocodone Bitart/Acetaminophen (Hydrocodone/Acet 5/325 Tablet) 1 tab PO Q4H PRN PRN Reason: Pain, Moderate (4-6) Hydrocodone Bitart/Acetaminophen (Hydrocodone/Acet 5/325 Tablet) 2 tab PO Q4H PRN PRN Reason: Pain, Severe (7-10) Hydromorphone HCl (Hydromorphone 0.5 Mg Inj) 0.5 mg IV Q2H PRN PRN Reason: Pain, Severe (7-10) Lactated Ringer's (Lactated Ringers) 1,000 mls @ 100 mls/hr IV CONT SHANNON Lactated Ringer's (Lactated Ringers) 1,000 mls @ 100 mls/hr IV CONT SHANNON Ibuprofen (Ibuprofen 600 Mg Tablet) 600 mg PO Q6H PRN PRN Reason: Fever/Mild Pain (1-3) Naloxone HCl (Naloxone 0.4 Mg/Ml Vial) 0.2 mg IV Q2MIN PRN PRN Reason: Opiate Reversal Ondansetron HCl (Ondansetron 4 Mg/2 Ml Inj) 4 mg IV NOW PRN PRN Reason: Nausea And Vomiting Ondansetron HCl (Ondansetron 4 Mg Odt) 4 mg PO NOW PRN PRN Reason: Nausea And Vomiting Ondansetron HCl (Ondansetron 4 Mg/2 Ml Inj) 4 mg IV Q8HR PRN PRN Reason: Nausea And Vomiting Discontinued Medications Sodium Chloride (Normal Saline 0.9%) 500 mls @ 1,000 mls/hr IV BOLUS ONE Stop: 11/09/23 17:55 Last Infusion: 11/09/23 17:59 Dose: Infused Documented By: Admin: 11/09/23 17:39 Dose: 1,000 mls/hr Documented By: JIMMY Piperacillin Sod/Tazobactam (Sod 4.5 gm/ Sodium Chloride) 100 mls @ 200 mls/hr IV NOW ONE Stop: 11/09/23 18:55 Vital Signs Vital signs: Vital Signs - 8 hr 11/09/23 15:26 Temperature 98.3 F Pulse Rate 84 Respiratory Rate 16 Blood Pressure 138/88 Pulse Oximetry 96 Oxygen Delivery Method Room Air MDM - Abdominal Pain <NATACHA Mcpherson - Last Filed: 11/09/23 19:02> Differential Diagnosis Differential diagnosis: Likely abdominal pain, acute appendicitis, small bowel obstruction and other (Diverticulitis, cholecystitis) Lab Data 11/09/23 15:40 11/09/23 15:40 Labs: Lab Results 11/09/23 Range/Units 15:40 WBC 11.5 H (4.5-11.0) X10^3/uL RBC 4.91 (4.5-5.9) X10^6/uL Hgb 16.3 (13.5-17.5) g/dL Hct 46.6 (41-53) % MCV 94.9 (80-100) fL MCH 33.3 (26-34) PG MCHC 35.1 (30-36) % RDW 12.4 (11.6-14.8) % Plt Count 233 (150-400) X10^3/uL Neut % (Auto) 67.1 (50-75) % Lymph % (Auto) 22.3 L (25-40) % Amelia % (Auto) 7.5 (3-14) % Eos % (Auto) 2.4 (2-4) % Baso % (Auto) 0.7 (0-2) % Neut # (Auto) 7700 H (8477-7745) /uL Lymph # (Auto) 2600 (6975-4007) /uL Amelia # (Auto) 900 (0-900) /uL Eos # (Auto) 300 (0-450) /uL Baso # (Auto) 100 (0-100) /uL Sodium 135 L (137-145) mmol/L Potassium 3.8 (3.4-5.1) mmol/L Chloride 104 (98-107) mmol/L Carbon Dioxide 22 (22-32) mmol/L BUN 17 (9-20) mg/dL Creatinine 0.86 (0.66-1.25) mg/dL Estimated GFR > 60 (>60) mL/min BUN/Creatinine Ratio 19.8 (6-22) Glucose 101 H (70-100) mg/dL Calcium 9.2 (8.4-10.2) mg/dL Total Bilirubin 1.1 (0.2-1.3) mg/dL AST 24 (17-59) IU/L ALT 44 (<50) IU/L Alkaline Phosphatase 58 (38-126) U/L Total Protein 7.3 (6.3-8.2) g/dL Albumin 4.7 (3.5-5.0) g/dL Globulin 2.6 (1.7-4.1) g/dL Albumin/Globulin Ratio 1.8 (1.0-2.8) Lipase 44 (23-300) U/L Point of care testing: Urine Dip Bedside Urine Glucose Negative Bedside Urine Bilirubin - Negative Bedside Urine Ketone +/- 5 Urine Specific [place] 1.005 Bedside Urine Occult Blood - Negative Bedside Urine pH 5.5 Bedside Urine Protein - Negative Bedside Urine Urobilinogen - Negative Bedside Urine Nitrite - Negative Bedside Urine Leukocytes - Negative Esterase Imaging Data CT scan - abdomen/pelvis: Radiologist's Impression: [place] [address] CT Scan Report Signed Patient: Kingsley Roldan MR#: [id number] : 1980 Acct:[id number] Age/Sex: 43 / M Date of Service: 11/09/23 Loc: ED Accession Number: [id number] Procedure: CT abdomen pelvis w con Ordering Provider: Kris Valero PROCEDURE: CT ABDOMEN PELVIS W CON INDICATIONS: Abdominal pain TECHNIQUE: After the administration of intravenous contrast, axial sections acquired from the lung bases to the pubic symphysis. Coronal and sagittal reformats were performed. For radiation dose reduction, the following was used: automated exposure control, adjustment of mA and/or kV according to patient size. COMPARISON: None. FINDINGS: Image quality: Diagnostic. Lower Chest: No significant findings. ABDOMEN: Liver: No solid mass. Gallbladder: Cholelithiasis without wall thickening or adjacent fat stranding to suggest acute cholecystitis. Gallbladder hydrops. Biliary ducts: No biliary dilation. Pancreas: No ductal dilation. Spleen: Size is within normal limits. Adrenal Glands: No adrenal nodules. Kidneys and Ureters: No hydronephrosis. No solid mass. No complex renal cystic lesion which requires follow up. Stomach and Bowel: Normal colonic caliber, without significant wall thickening. Inflamed diverticulum of the jejunum (series 2, image 5). Colonic diverticulosis without evidence of diverticulitis. Peritoneum: No abnormal intraperitoneal fluid. No free air. Ventral Wall: No significant ventral hernia. Abdominal Nodes: No retroperitoneal or mesenteric adenopathy by size criteria. Vessels: Aorta and inferior vena cava are normal in size. PELVIS: Pelvic Organs: Unremarkable. Bladder: No bladder wall thickening, accounting for underdistention. Pelvic Nodes: No enlarged lymph nodes. Miscellaneous: No inguinal hernias are seen. Bones: No aggressive osseous abnormality. IMPRESSION: Inflamed diverticulum of the jejunum. 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 This could confirmed with a tailored nuclear medicine pertechnetate study. Cholelithiasis with gallbladder hydrops but no wall thickening. Findings may indicate early acute cholecystitis. No choledocholithiasis. Dictated by: Kenn Fernández M.D. on 11/09/2023 at 16:09 Approved by: Kenn Fernández M.D. on 11/09/2023 at 16:14 [facility] Narrative Medical decision making narrative: 43-year-old male with abdominal pain. Assessment was concerning secondary to abdominal pain. Labs were non concerning. CT revealed cholelithiasis, possible acute cholecystitis, and inflamed jejunum, suspicious for Meckel's diverticulum. Discussed case with Dr. Gtz of the ED. I will obtain a right upper quadrant ultrasound and contact the on-call general surgeon for guidance. Discussed case with Dr. Shah of general surgery who recommended admission, Zosyn IV and lactated Ringer's at 100 mL/hour. General surgery will evaluate him in the morning to determine whether or not surgery is necessary. Patient is aware of Surgeons recommendation and is agreeable with course of action. <Shandra Pitts MD - Last Filed: 11/09/23 19:42> Lab Data Labs: Lab Results 11/09/23 Range/Units 15:40 WBC 11.5 H (4.5-11.0) X10^3/uL RBC 4.91 (4.5-5.9) X10^6/uL Hgb 16.3 (13.5-17.5) g/dL Hct 46.6 (41-53) % MCV 94.9 (80-100) fL MCH 33.3 (26-34) PG MCHC 35.1 (30-36) % RDW 12.4 (11.6-14.8) % Plt Count 233 (150-400) X10^3/uL Neut % (Auto) 67.1 (50-75) % Lymph % (Auto) 22.3 L (25-40) % Amelia % (Auto) 7.5 (3-14) % Eos % (Auto) 2.4 (2-4) % Baso % (Auto) 0.7 (0-2) % Neut # (Auto) 7700 H (4638-2756) /uL Lymph # (Auto) 2600 (7533-3291) /uL Amelia # (Auto) 900 (0-900) /uL Eos # (Auto) 300 (0-450) /uL Baso # (Auto) 100 (0-100) /uL Sodium 135 L (137-145) mmol/L Potassium 3.8 (3.4-5.1) mmol/L Chloride 104 (98-107) mmol/L Carbon Dioxide 22 (22-32) mmol/L BUN 17 (9-20) mg/dL Creatinine 0.86 (0.66-1.25) mg/dL Estimated GFR > 60 (>60) mL/min BUN/Creatinine Ratio 19.8 (6-22) Glucose 101 H (70-100) mg/dL Calcium 9.2 (8.4-10.2) mg/dL Total Bilirubin 1.1 (0.2-1.3) mg/dL AST 24 (17-59) IU/L ALT 44 (<50) IU/L Alkaline Phosphatase 58 (38-126) U/L Total Protein 7.3 (6.3-8.2) g/dL Albumin 4.7 (3.5-5.0) g/dL Globulin 2.6 (1.7-4.1) g/dL Albumin/Globulin Ratio 1.8 (1.0-2.8) Lipase 44 (23-300) U/L Point of care testing: Urine Dip Bedside Urine Glucose Negative Bedside Urine Bilirubin - Negative Bedside Urine Ketone +/- 5 Urine Specific [place] 1.005 Bedside Urine Occult Blood - Negative Bedside Urine pH 5.5 Bedside Urine Protein - Negative Bedside Urine Urobilinogen - Negative Bedside Urine Nitrite - Negative Bedside Urine Leukocytes - Negative Esterase Discharge Plan Departure Patient Disposition: Admitted As Inpatient Clinical Impression: Abdominal pain Qualifiers: Abdominal location: right upper quadrant Qualified Code(s): R10.11 - Right upper quadrant pain Admit Date/Time: 11/09/23 18:54 Admit Provider: Frantz Shah ED Sign-out <Shandra Pitts MD - Last Filed: 11/09/23 19:42> Cosign ED Attending Cosignature Attestation: I DID NOT SEE THIS PATIENT. I WAS AVAILABLE ALL TIMES FOR CONSULTATION.
[2023-11-09 16:20] LABS: Alanine Aminotransferase 44 IU/L (<50); Albumin 4.7 g/dL (3.5-5.0); Albumin Globulin Ratio 1.8 (1.0-2.8); Alkaline Phosphatase 58 U/L (38-126); Aspartate Aminotransferase 24 IU/L (17-59); BUN Creatinine Ratio 19.8 (6-22); Bilirubin Total 1.1 mg/dL (0.2-1.3); Blood Urea Nitrogen 17 mg/dL (9-20); Calcium 9.2 mg/dL (8.4-10.2); Carbon Dioxide 22 mmol/L (22-32); Chloride 104 mmol/L (98-107); Estimated Glomerular Filt Rate > 60 mL/min (>60); Globulin 2.6 g/dL (1.7-4.1); Glucose 101 mg/dL (70-100); HEMOLYSIS < 15 (0-50); Lipase 44 U/L (23-300); Potassium 3.8 mmol/L (3.4-5.1); Sodium 135 mmol/L (137-145); Total Protein 7.3 g/dL (6.3-8.2)
--- NOTE | 2023-11-09 17:26 | DI.US.S_ITS ---
PROCEDURE: US ABDOMEN LIMITED INDICATIONS: Right upper quadrant pain. CT shows possible acute promise. TECHNIQUE: Real-time scanning was performed of the abdominal and retroperitoneal organs, with image documentation. COMPARISON: [facility], CT, CT ABDOMEN PELVIS W CON, 11/09/2023, 16:15. FINDINGS: Liver: Liver is mildly enlarged and increased in echogenicity. Focal fatty sparing is noted adjacent to the gallbladder. Gallbladder: Mobile gallstones are present. Mild wall thickening measuring 4 mm. No pericholecystic edema. Negative sonographic Schneider's sign. Biliary ducts: Not well seen Pancreas: Visualized portions of the pancreas are sonographically normal. Miscellaneous: No free abdominal fluid. IMPRESSION: 1. Gallstones and mild gallbladder wall thickening. No pericholecystic fluid or sonographic Schneider sign. Findings are concerning but not diagnostic of acute cholecystitis and clinical correlation is recommended. Consider HIDA scan as clinically indicated. 2. Mild hepatomegaly and hepatic steatosis. Dictated by: Anthony Obrien M.D. on 11/09/2023 at 19:08 Approved by: Anthony Obrien M.D. on 11/09/2023 at 19:11
[2023-11-09] MEDS: SODIUM CHLORIDE 0.9% 500 ML 1000 ML IV (17:39)
[2023-11-09 19:00] VITALS: BP 134/78; PULSE 63; RESP 18; TEMP 36.2; O2SAT 98
[2023-11-09 19:13] VITALS: BP 121/81; PULSE 64; RESP 16; TEMP 36.6; O2SAT 97
[2023-11-09 20:21] VITALS: BMI 30.9
[2023-11-09] MEDS: PIPERACILLIN/TAZO 4.5 GM in SODIUM CHLORIDE 0.9% 100 ML IV (20:38)
[2023-11-09] MEDS: LACTATED RINGERS 1,000 ML 100 ML IV (20:38)
[2023-11-09] MEDS: HYDROCODONE/ACET 5/325 TABLET 1 TAB PO (20:51)
[2023-11-10 01:00] VITALS: BP 113/72; PULSE 60; RESP 18; TEMP 36.8; O2SAT 98
[2023-11-10 06:50] LABS: Add Manual Diff / Slide Review NO; Basophils Absolute Auto 100 /uL (0-100); Basophils Percent Auto 0.6 % (0-2); Eosinophils Absolute Auto 400 /uL (0-450); Eosinophils Percent Auto 3.9 % (2-4); Hematocrit 42.7 % (41-53); Hemoglobin 15.2 g/dL (13.5-17.5); Lymphocytes Absolute Auto 1900 /uL (1100-4500); Lymphocytes Percent Auto 20.9 % (25-40); Mean Corpuscular HGB Conc 35.5 % (30-36); Mean Corpuscular Hemoglobin 33.8 PG (26-34); Mean Corpuscular Volume 95.4 fL (80-100); Monocytes Absolute Auto 600 /uL (0-900); Neutrophils Absolute Auto 6200 /uL (1500-7000); Neutrophils Percent Auto 67.6 % (50-75); Platelet Count 212 X10^3/uL (150-400); Red Blood Cell Count 4.48 X10^6/uL (4.5-5.9); Red Cell Distribution Width 12.4 % (11.6-14.8); White Blood Cell Count 9.2 X10^3/uL (4.5-11.0)
[2023-11-10 06:53] LABS: Alanine Aminotransferase 36 IU/L (<50); Albumin Globulin Ratio 1.7 (1.0-2.8); Alkaline Phosphatase 45 U/L (38-126); Aspartate Aminotransferase 22 IU/L (17-59); BUN Creatinine Ratio 16.7 (6-22); Blood Urea Nitrogen 15 mg/dL (9-20); Calcium 8.7 mg/dL (8.4-10.2); Carbon Dioxide 27 mmol/L (22-32); Chloride 104 mmol/L (98-107); Estimated Glomerular Filt Rate > 60 mL/min (>60); Globulin 2.4 g/dL (1.7-4.1); Glucose 95 mg/dL (70-100); HEMOLYSIS < 15 (0-50); Potassium 4.5 mmol/L (3.4-5.1); Sodium 136 mmol/L (137-145); Total Protein 6.4 g/dL (6.3-8.2)
[2023-11-10] MEDS: LACTATED RINGERS 1,000 ML 100 ML IV (07:07)
--- NOTE | 2023-11-10 11:05 | CM.DANOTE ---
Initial DCP Assessment Note Pt is a 43 yo male, resident of [place], arrives with severe abd pain, concerning for appendicitis, admitted for further management and currently scheduled for lap appy with Dr Santos this evening. Of note; PMH includes TBI, anxiety, depression, chronic back and shoulder pain and MALLORIE on CPAP. PCP: Nathan Rodriguez Payer: Dagoberto/ EDWIN Reviewed chart, pt discussed in multidisciplinary rounds this morning. Patient indp at baseline. No barriers identified at this time to patient's discharge home w/family to assist; close outpatient f/u anticipated. CM team will plan to follow clinical course closely in case any DC needs or concerns arise. DENICE Peñaloza Discharge Planning/Care Management CM Discharge Assessment Start: 11/10/23 10:56 Freq: Status: Active Protocol: Document 11/10/23 10:56 ARACELI (Rec: 11/10/23 11:04 ARACELI [id number]) Discharge Planning Assessment Assigned [employer] Consultant DENICE Quiñonez DPOA/Assigned Designee Name father Hernandez Contact Information [phone] Advance Directives? No History Provided By Patient,Medical Record Prior Living Arrangements House Independent with ADL's Yes Is patient alert and oriented? Yes Barriers to Discharge No Discharge Plan Home Transportation Arrangement Family Referrals Initiated None needed
--- NOTE | 2023-11-10 13:28 | PM.HP.1 ---
History of Present Illness History of Present Illness Date Patient Seen: 11/10/23 Time Patient Seen: 20:21 Chief complaint: abd pain Narrative: 43-year-old man PMH MALLORIE, hypertension who is admitted for abdominal pain possible acute cholecystitis. Over the past 2 days developed significant epigastric pain associated with nausea and emesis. He presented to [facility] last night 11/08. At admission afebrile vital signs within normal limits. WBC 9, LFTs within normal limits including bilirubin of 1.0. Abdominal ultrasound demonstrated mobile gallstones no wall thickening or pericholecystic fluid. Given his level of pain he was admitted for possible acute cholecystitis and consideration of cholecystectomy. This morning he reports feeling significantly better. [facility] Medical History Mixed hyperlipidemia TBI (traumatic brain injury) Depression (~2020) Anxiety (~2020) Migraines (~2006) Shoulder pain (~2009) Ankle pain (~1999) Chronic back pain (~2014) Vertigo (~2020) Hemorrhoid (~2006) Diverticular disease (~2006) Stress reaction Post concussion syndrome Benign essential HTN (~2006) MALLORIE on CPAP Social History Smoking Status: Never smoker alcohol intake: never Meds Home Medications and Allergies Home Medications Medication Instructions Recorded Confirmed Type metoprolol succinate 25 mg 25 mg PO BID #180 tabs 06/26/23 11/09/23 Rx tablet,extended release 24 hr c-pap supplies #1 ea 10/16/23 11/09/23 Rx Allergies Allergy/AdvReac Type Severity Reaction Status Date / Time No Known Drug Allergies Allergy Verified 11/09/23 15:30 Exam Vital Signs (past 8 hours): - 11/10/23 07:00 Oxygen Delivery Method Room Air Oxygen Delivery Method Room Air Oxygen Flow Rate 0 Narrative Exam Narrative: General adult man alert oriented no acute distress Chest nonlabored respiration Abdomen soft nontender Extremities warm well perfused Objective Labs 11/10/23 06:19 11/10/23 06:19 Labs: Laboratory Results - last 24 hr 11/09/23 11/10/23 15:40 06:19 WBC 11.5 H 9.2 RBC 4.91 4.48 L Hgb 16.3 15.2 Hct 46.6 42.7 MCV 94.9 95.4 MCH 33.3 33.8 MCHC 35.1 35.5 RDW 12.4 12.4 Plt Count 233 212 Neut % (Auto) 67.1 67.6 Lymph % (Auto) 22.3 L 20.9 L [place] % (Auto) 7.5 7.0 Eos % (Auto) 2.4 3.9 Baso % (Auto) 0.7 0.6 Neut # (Auto) 7700 H 6200 Lymph # (Auto) 2600 1900 [place] # (Auto) 900 600 Eos # (Auto) 300 400 Baso # (Auto) 100 100 Sodium 135 L 136 L Potassium 3.8 4.5 Chloride 104 104 Carbon Dioxide 22 27 BUN 17 15 Creatinine 0.86 0.90 Estimated GFR > 60 > 60 BUN/Creatinine Ratio 19.8 16.7 Glucose 101 H 95 Calcium 9.2 8.7 Total Bilirubin 1.1 1.0 AST 24 22 ALT 44 36 Alkaline Phosphatase 58 45 Total Protein 7.3 6.4 Albumin 4.7 4.0 Globulin 2.6 2.4 Albumin/Globulin Ratio 1.8 1.7 Lipase 44 Assessment & Plan Assessment and plan (1) Abdominal pain: Qualifiers: Abdominal location: right upper quadrant Qualified Code(s): R10.11 - Right upper quadrant pain Status: Acute Assessment & Plan narrative: 43-year-old man admitted for acute abdominal pain possible cholecystitis. Review of the labs, imaging and examination are suggestive of biliary colic without signs of acute cholecystitis. Following discussion his preference is to discharge home today and will plan for elective cholecystectomy next week. Emergency return precautions for worsening abdominal pain nausea fever greater than 101.5 were provided. Time-Based Coding :: [TOTAL MINUTES] spent with patient and on the chart (including review of chart, obtaining history, exam, reviewing outside data, placing orders, documenting exam and treatment plan, and counseling patient) on [DATE]. Quality VTE Deep Vein Thrombosis/Pulmonary Embolism Present on Admission: No
--- NOTE | 2023-11-10 14:56 | PC.NURSE ---
Discharge: Pt has made the decision to post pone surgery until next week. He has minimal tenderness. Pain is in the rt upper quad toward the midline abd. Vds w/out diff. No use of pain medication, reports he doesn't need it. Tolerated diet w/out problems and was instructed on eating a low fat diet. Discharge packet reviewed. Questions answered. Pt d/c to home with SO.
--- NOTE | 2023-11-16 07:34 | PC.NURSE ---
Late Entry: Piperacillin initiated at 2037 complete at 2108.
== END 2023-11-10 14:55 | disposition home or self-care (01) ==
LOC: ED 18:53 → AC 11-10 06:18
PROVIDERS: Emergency Medicine; Admitting Provider Surgery; Emergency Provider Registered Nurse; PCP Family Medicine; Referring Provider Registered Nurse; Visit Provider Surgery
DX: K80.20 Calculus of gallbladder without cholecystitis without obstruction (principal); G47.33 Obstructive sleep apnea (adult) (pediatric); I10 Essential (primary) hypertension
CPT/HCPCS: 36415; 74177; 76705; 80053; 81003; 83690; 85025; 96365; 99232; 99284; G0378; J2543; Q9967

== ENCOUNTER 2024-05-15 14:30 | Emergency (ER) | payer OTHER, SELFPAY ==
[2024-05-15 14:53] VITALS: BP 150/94; PULSE 63; RESP 16; TEMP 36.9; O2SAT 98; BMI 30.9
--- NOTE | 2024-05-15 15:48 | ED.BACK ---
HPI - Back Pain/Injury <Jody Quispe PA-C - Last Filed: 05/15/24 20:04> General Chief Complaint: Back Pain/Injury Stated Complaint: low back pain Time Seen by Provider: 05/15/24 15:19 History of Present Illness HPI Narrative: Mr. Roldan is a very pleasant 43-year-old male with a past medical history of hypertension, hyperlipidemia, L4/L5 bulging discs, prior TBI who presents to the emergency department for low back pain occasionally radiating to the left leg x 4 days. Patient states he was chopping wood which precipitated symptoms. Reports diffuse pain across the low back that occasionally radiates down into the back of the left leg. He denies fevers, chills, direct trauma to the back. No weakness of the leg. No bowel or bladder incontinence or retention. Does have a history of sciatica problems with his low back but states that has been ?a while? since he has had a flare-up. He took Aleve this morning which did not resolve with the symptoms. Ambulates independently. Related Data Home Medications Medication Instructions Recorded Confirmed metoprolol succinate 25 mg 25 mg PO BID PRN 05/22/24 tablet,extended release 24 hr Previous Rx's Medication Instructions Recorded c-pap supplies #1 ea 10/16/23 acetaminophen 500 mg capsule 1,000 mg (2 x 500 mg) PO Q8HR PRN 05/15/24 pain #20 caps lidocaine 5 % topical patch 1 patch topical DAILY #15 ea 05/15/24 (Lidoderm) cyclobenzaprine 5 mg tablet 5 mg PO TID PRN muscle spasm #45 05/23/24 tabs naproxen 500 mg tablet 500 mg PO BID PRN pain #60 tabs 05/23/24 Allergies Allergy/AdvReac Type Severity Reaction Status Date / Time No Known Drug Allergies Allergy Verified 05/22/24 07:58 Review of Systems <Jody Quispe PA-C - Last Filed: 05/15/24 20:04> Review of Systems ROS Unobtainable: All systems reviewed & are unremarkable except as noted in HPI and below Patient History <Jody Quispe PA-C - Last Filed: 05/15/24 20:04> Medical History (Updated 05/22/24 @ 08:44 by Nathan Rodriguez DO) 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 Well-developed patient, in no acute distress. HEAD: Atraumatic. Normocephalic. NECK: Trachea midline. Cervical ROM intact. CARDIOVASCULAR: Regular rate and rhythm. Strong DP and PT pulses bilaterally RESPIRATORY: ?Nonlabored respirations. ?Speaking in clear, full sentences. ?Clear to auscultation. EXTREMITIES: No edema or joint tenderness. BACK: Nontender without deformity or crepitance. +right SLR, negative left. Subjective pain down posterior left leg with certain movement. NEURO: AOx3. ?Clear speech. ?Moves all 4 extremities appropriately. 5/5 bilateral lower extremity strength. Sensation intact to light touch throughout the lower extremities. Steady gait. SKIN: No rash or erythema of visible areas Initial Vital Signs Initial Vital Signs: Vital Signs Temperature 98.4 F 05/15/24 14:53 Pulse Rate 63 05/15/24 14:53 Respiratory Rate 16 05/15/24 14:53 Blood Pressure 150/94 H 05/15/24 14:53 Pulse Oximetry 98 05/15/24 14:53 Oxygen Delivery Method Room Air 05/15/24 14:53 <Dequan Rao MD - Last Filed: 05/28/24 07:54> Initial Vital Signs Initial Vital Signs: Vital Signs Temperature 98.4 F 05/15/24 14:53 Pulse Rate 63 05/15/24 14:53 Respiratory Rate 16 05/15/24 14:53 Blood Pressure 150/94 H 05/15/24 14:53 Pulse Oximetry 98 05/15/24 14:53 Oxygen Delivery Method Room Air 05/15/24 14:53 Course <Jody Quispe PA-C - Last Filed: 05/15/24 20:04> Orders Ordered: Discontinued Medications Acetaminophen (Acetaminophen 325 Mg Tablet) 975 mg PO NOW ONE Stop: 05/15/24 16:06 Last Admin: 05/15/24 16:15 Dose: 975 mg Documented By: ILENE Ketorolac Tromethamine (Ketorolac 30 Mg/Ml Vial) 30 mg IM NOW ONE Stop: 05/15/24 16:06 Last Admin: 05/15/24 16:16 Dose: 30 mg Documented By: ILENE Lidocaine (Lidocaine 5% Patch) 1 each TOP NOW ONE Stop: 05/15/24 16:06 Last Admin: 05/15/24 16:16 Dose: 1 each Documented By: ILENE Vital Signs Vital signs: Vital Signs - 8 hr 05/15/24 14:53 05/15/24 16:26 Temperature 98.4 F Pulse Rate 63 72 Respiratory Rate 16 18 Blood Pressure 150/94 H 165/95 H Pulse Oximetry 98 98 Oxygen Delivery Method Room Air Room Air <Dequan Rao MD - Last Filed: 05/28/24 07:54> Orders Ordered: Discontinued Medications Acetaminophen (Acetaminophen 325 Mg Tablet) 975 mg PO NOW ONE Stop: 05/15/24 16:06 Last Admin: 05/15/24 16:15 Dose: 975 mg Documented By: ILENE Ketorolac Tromethamine (Ketorolac 30 Mg/Ml Vial) 30 mg IM NOW ONE Stop: 05/15/24 16:06 Last Admin: 05/15/24 16:16 Dose: 30 mg Documented By: LIENE Lidocaine (Lidocaine 5% Patch) 1 each TOP NOW ONE Stop: 05/15/24 16:06 Last Admin: 05/15/24 16:16 Dose: 1 each Documented By: ILENE Vital Signs Vital signs: Vital Signs - 8 hr 05/15/24 14:53 05/15/24 16:26 Temperature 98.4 F Pulse Rate 63 72 Respiratory Rate 16 18 Blood Pressure 150/94 H 165/95 H Pulse Oximetry 98 98 Oxygen Delivery Method Room Air Room Air MDM - Back Pain/Injury <Jody Quispe PA-C - Last Filed: 05/15/24 20:04> Medical Records Attestation: I reviewed the patient's medical records. MDM Narrative Medical decision making narrative: 43-year-old male with a past medical history of hypertension, hyperlipidemia, L4/L5 bulging discs, prior TBI who presents to the emergency department for low back pain occasionally radiating to the left leg x 4 days. Differential diagnosis includes but is not limited to lumbar radiculopathy, degenerative disc disease, herniated disc, muscle spasm, muscle strain, etc. On exam the patient is in no acute distress, nontoxic appearing, lower extremities neurovascularly intact, ambulatory without difficulty. Vital signs within normal limits, mildly elevated BP. He has been having exacerbation of back pain radiating to the left leg for the last 4 days precipitated by chopping wood. No direct trauma to the back. No fevers, bowel or bladder dysfunction, weakness. Discussed imaging with the patient however at this time he agreeable to conservative management as there has no indication for emergent imaging. Symptoms consistent with lumbar radiculopathy. Did recommend patient follow up with PCP/ortho spine for further evaluation as he may benefit from MRI in the future as he does suffer from chronic back problems. We will treat with Toradol, Lidoderm, acetaminophen in the ED. patient was prescribed a Medrol Dosepak in addition to acetaminophen, naproxen, Lidoderm, cyclobenzaprine for home. Discussed risks of muscle relaxers with the patient. Recommended gentle stretching, discussed he may benefit from physical therapy if recommended by his PCP. Patient verbalized understanding of all information is agreeable to the plan. ED return precautions discussed. Patient is stable for discharge home, ambulatory, driving himself home. Discharge Plan Departure Patient Disposition: Home Clinical Impression: Acute left lumbar radiculopathy Instructions: DI for Back Pain With Sciatica Activity Restrictions/Additional Instructions: Thank you for coming to the emergency department. Today you were evaluated for low back pain radiating down the left leg. Your symptoms are consistent with lumbar radiculopathy. I prescribed you a steroid Dosepak to take in addition to acetaminophen, naproxen for pain and cyclobenzaprine/Flexeril if needed for muscle spasms. Muscle relaxers can make you drowsy do not take this medication when driving or operating heavy machinery. Please follow up with your primary care doctor. I advised you follow up with the orthopedic spine surgeon such as Dr. Dequan Sanchez with [facility] for further evaluation, imaging and management of your low back pain. You may call to schedule an appointment at [phone]. If you develop changes or dysfunction with your bowel or bladder, weakness of a leg, fevers, any other concerns please return to the ER immediately. Please follow up with your primary care doctor within the next 2-3 days for ER follow-up. (If you do not have a PCP you can call [phone]. ?to schedule an appointment with an [facility] Primary Care Provider) IF YOU DEVELOP ANY NEW OR WORSENING SYMPTOMS, RETURN TO THE ER! Please read the attached instructions, they highlight more specific treatments and interventions for you at home. Thank you for letting me participate in your care, Jody Quispe PA-C Prescriptions: New acetaminophen 500 mg capsule 1,000 mg PO Q8HR PRN (Reason: pain) Qty: 20 0RF lidocaine [Lidoderm] 5 % adhesive patch,medicated 1 patch topical DAILY Qty: 15 0RF Rx Instructions: leave on most painful area for up to 12 hrs No Action metoprolol succinate 25 mg tablet extended release 24 hr 25 mg PO BID PRN Rx Instructions: 1 po daily, 1 po in addition daily PRN cyclobenzaprine 5 mg tablet 5 mg PO TID PRN (Reason: muscle spasm) Qty: 45 5RF Rx Instructions: Can take up to 10mg per dose. naproxen 500 mg tablet 500 mg PO BID PRN (Reason: pain) Qty: 60 5RF Rx Instructions: with food (DME) c-pap supplies See Rx Instructions .Route .MEDSUPPLY Qty: 1 0RF Rx Instructions: nasal pillow per pt preference, tubing, filters and all other supplies needed for cpap Referrals: Nathan Rodriguez DO [Primary Care Provider] - Stand Alone Forms: Patient Portal/API/Survey ED Sign-out <Dequan Rao MD - Last Filed: 05/28/24 07:54> Cosign ED Attending Levature Attestation: I was immediately available in the department for consultation. ?This documentation has been reviewed and I agree with assessment and plan. Supervised by Dequan Rao MD
[2024-05-15] MEDS: ACETAMINOPHEN 325 MG TABLET 975 MG PO (16:15)
[2024-05-15] MEDS: LIDOCAINE 5% PATCH 1 EACH TOP (16:16)
[2024-05-15] MEDS: KETOROLAC 30 MG/ML VIAL IM (16:16)
[2024-05-15 16:26] VITALS: BP 165/95; PULSE 72; RESP 18; O2SAT 98
== END 2024-05-15 17:05 | disposition home or self-care (01) ==
PROVIDERS: Emergency Provider Physician Assistant; PCP Family Medicine
DX: M54.16 Radiculopathy, lumbar region (principal)
CPT/HCPCS: 96372; 99283; J1885

== ENCOUNTER 2024-10-16 09:00 | Outpatient (RCR) | payer OTHER, SELFPAY ==
--- NOTE | 2024-07-25 10:29 | PT.OIE ---
Addendum entered by Luisa Garcia PT 07/25/24 10:32: note was saved and signed off on before 4 digit PIN was entered. Original Note: Current Diagnoses Other chronic pain (07/25/24) Pain in unspecified knee (07/25/24) Past Medical History (Last Updated 05/22/24 @ 08:43 by Nathan Rodriguez DO) Ankle pain (~1999) Anxiety (~2020) Benign essential HTN (~2006) Chronic back pain (~2014) Depression (~2020) Diverticular disease (~2006) Hemorrhoid (~2006) Migraines (~2006) Mild neurocognitive disorder due to traumatic brain injury Mixed hyperlipidemia MALLORIE on CPAP Post concussion syndrome Shoulder pain (~2009) Stress reaction TBI (traumatic brain injury) Vertigo (~2020) Visit Care Team Role Provider Type Nathan Rodriguez DO Attending Provider Physician Family Provider Primary Care Provider Referring Provider Specialty: Family Practice Address: [address] [place] [address], [facility] Email: [email or web address] Physical Therapy Initial Evaluation PT-OP-A Visit Information Start: 07/24/24 13:20 Freq: Status: Active Protocol: Document 07/25/24 08:05 KW (Rec: 07/25/24 09:51 KW [id number]) Out-Patient Physical Therapy Visit Information Visit Information Visit Type Initial Evaluation Visit Start Time 08:15 Visit Stop Time 09:00 Visit Number 1 Evaluation Information Evaluation Date 07/25/24 Precautions Precautions none PT-OP-B Current Condition Start: 07/24/24 13:20 Freq: Status: Active Protocol: Document 07/25/24 08:05 KW (Rec: 07/25/24 09:51 KW [id number]) Current Condition History of Current Condition Onset Date chronic Current Complaints B shoulder and knee pain, arthritis controlled with diet and exercise NSAID History of Current Condition would like to figure out way to strengthen his joints without causing further damange. Has been under a great deal of stress, was stress eating, not taking care of himself and is seaking out providers to help him re-set, help with accountability. 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 would like to get back to the [employer], swimming and running. Prior Treatments and Tests chronic TBI, multiple concussions over the hears, has been thrown off of horses, hit head on construction beams, etc. Future Testing and Treatments Planned anticipates B shoulder and knee replacements in the future. Developmental History Developmental History na Treatment Goals Patient/Caregiver Goals to prolong the health of his joints. 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 Baseline Function- Recreation/Hobbies boxing, running, [employer], [employer], swimming Baseline Function- Other horse riding Current Functional Impairments (Reported) Functional Limitations- ADL's TBI, memory deficits, motivation Personal Factors Other Personal Factors That May Effect stress, comorbidites of TBI Therapy/Recovery PT-OP-C Subjective Start: 07/24/24 13:20 Freq: Status: Active Protocol: Document 07/25/24 08:05 KW (Rec: 07/25/24 09:51 KW [id number]) OP-PT Subjective Patient Comments Patient Reported Progress Improving Patient Questionnaires Lower Extremity Functional Scale LEFS Impairment 40 to 59% Impaired (Score 32- 47) OP-PT Pain Assessment Pain Assessment Grid Paper Pain Assessment Grid Completed Yes Location knees Intensity 5 Scale Used Numeric (0 - 10) Description Aching Frequency Frequent Pain Aggravating Factors Position,Changing Position, Activity,Exercise,Standing, Sitting,Stair Climbing,Bending Pain Alleviating Factors Cold,Heat,Medication,Position, Exercise,Massage Shoulder Intensity 5 Scale Used Numeric (0 - 10) Description Aching Frequency Frequent Pain Aggravating Factors Position,Changing Position,ADL 's,Activity,Exercise Pain Alleviating Factors Cold,Heat,Medication,Position, Exercise,Massage PT-OP-D Balance Start: 07/24/24 13:20 Freq: Status: Active Protocol: Document 07/25/24 08:05 KW (Rec: 07/25/24 09:51 KW [id number]) OP-PT Balance Assessment Sitting Balance Static Sitting Balance Ability Normal Dynamic Sitting Balance Ability Normal Standing Balance Static Standing Balance Ability Normal Dynamic Standing Balance Ability Normal Wright Fall Scale Copyright Permission PT-OP-E Functional Tests Start: 07/24/24 13:20 Freq: Status: Active Protocol: Document 07/25/24 08:05 KW (Rec: 07/25/24 09:51 KW [id number]) Functional Tests Apley's Scratch Test Action 3- Right + PT-OP-F Manual Assessment Start: 07/24/24 13:20 Freq: Status: Active Protocol: Document 07/25/24 08:05 KW (Rec: 07/25/24 09:51 KW [id number]) Manual Assessments Soft Tissue Assessment Soft Tissue Mobility Assessment elevated ribs, hypertonic B Upper traps, Joint Mobility Assessment Joint Mobility Assessment decreased upward rotation of scaps, tends to pull into shrug with overhead lifting, able to correct with tactile and verbal cues for low trap and serratus anterior engagement. Other Manual Assessments Other Manual Assessments cervical spine and diaphragm shifted right, improved with reposition of diaphragm and sternum PT-OP-G Mobility & Gait Start: 07/24/24 13:20 Freq: Status: Active Protocol: Document 07/25/24 08:05 KW (Rec: 07/25/24 09:51 KW [id number]) OP Mobility Evaluation Functional Movements Squats wide NIGEL, heels lifting off of ground Running Assessment TBD OP Gait Assessment Comments Gait Comments decreased big toe push off, improved with gastroc stretch, with elevated toes, emphasis on medial head of gastroc PT-OP-J Posture/Palpation/Skin Start: 07/24/24 13:20 Freq: Status: Active Protocol: Document 07/25/24 08:05 KW (Rec: 07/25/24 09:51 KW [id number]) Posture Evaluation Position Standing TMJ Posture Lips Together T-Spine Posture Flattened Thorax Posture Barrel Chested L-Spine Posture Flattened,Increased Lordosis Shoulder Posture (R) Rounded Scapula Posture (L) Protracted Pelvis Posture Anteriorly Tilted Weight Distribution Weight Shifted Right Ankle/Foot Posture (R) Supinated Foot Arch (R) High Arch PT-OP-K Range of Motion Start: 07/24/24 13:20 Freq: Status: Active Protocol: Document 07/25/24 08:05 KW (Rec: 07/25/24 09:51 KW [id number]) Lumbar Spine Range of Motion Lumbar Spine Active Flexion 45 Extension 70 Rotation Left 30 Rotation Right 40 ROM Limitations Soft Tissue Tightness,Muscle Tone Comments increased resting tone R SCM, scalenes, improved with sternum and diaphragm repositoining Shoulder Goniometric Range of Motion Shoulder ROM Limitations Shoulder ROM Limitations Muscle Weakness Comments decreased upward rotation of R > L scap with Sahrmann wall slide PT-OP-M Strength Start: 07/24/24 13:20 Freq: Status: Active Protocol: Document 07/25/24 08:05 KW (Rec: 07/25/24 09:51 KW [id number]) Trunk Strength Trunk Manual Muscle Testing Core Stabilization decreased recruitment of IO/TA with plank, push ups, tends to hold breath. Much improved with manual and verbal cues Comments B UE/LE motor 5/5 throughout PT-OP-Q Treatments Start: 07/24/24 13:20 Freq: Status: Active Protocol: Document 07/25/24 08:05 KW (Rec: 07/25/24 09:51 KW [id number]) Therapeutic Exercises Supine Exercises 1 Supine Exercise Name supine on foam roller, B scap protraction, retraction, shoulder circles, Side bilateral Comments emphasis on lower ribs down in front, reduce lumbar extension Standing Exercises 1 Standing Exercise Name B UE wall slides with band, Guillermina Valles Low trap recruitment Side bilateral Resistance light band Reps/Minutes 10 Comments emphasis on ribs DOWN in front , reduce lumbar extension, coordinate w/breat Other Exercises 2 Other Exercise Name standing gastroc stretch with 1/2 foam roller, Side bilateral Reps/Minutes 30 sec holds Comments emphasis on neutral calc alignment as tends to roll to lateral calc 1 Other Exercise Name all fours, cat/cow, child pose , child pose latt stretch Side bilateral Reps/Minutes 5 breaths each Comments emphasis on reducing lumbar extension with cat, posterior mediastinum expan Manual Therapy Treatment Manual Techniques 1 Type CHUCK manual repositoing of diaphragm, sternum, ribs, C spine, cranium Body Position Supine Reps/Duration 3 each Comments emphasis on nose breathing, lengthening exhale, pause at end of exhale Neuro Re-Education Treatment Movement Re-Education Movement Re-education Activities low trap recruitment and upper trap inhibition Self-Care/Home Management Treatment Education Patient Education Home Exercise Program,Joint Protection,Pain Management, Posture PT-OP-T Assessment and Plan Start: 07/24/24 13:20 Freq: Status: Active Protocol: Document 07/25/24 08:05 KW (Rec: 07/25/24 09:51 KW [id number]) Physical Therapy Assessment Rehab Potential Rehabilitation Potential Excellent Evaluation Complexity Number of Personal Factors/Comorbidities 1-2 Number of Body Systems Impaired 1-2 Clinical Presentation at Evaluation Stable Impairments Impairments Functional Mobility,Pain, Posture,Strength Goals 3 Impairment CORE strength/recruitment 3/5 Short Term Goal (STG) improve CORE 4/5, able to hold plank correct alignment 1 min STG Duration 6 weeks Shelter Goal (LTG) hold 2 min LTG Duration 12 weeks 2 Impairment pain 5/10 Short Term Goal (STG) reduce pain to 3/10 STG Duration 6 weeks Shelter Goal (LTG) pain to 1/ 10 LTG Duration 12 weeks 1 Impairment LEFS 43% Short Term Goal (STG) increase LEFS to 60% STG Duration 6 weeks Shelter Goal (LTG) increase LEFS to 80% LTG Duration 12 weeks Assessment Summary Assessment 42 y/o male presents with B Shoulder and knee pain due to years of extreme activity/work . He is addressing his arthritis with diet, exercise, stress manageament and nutrition. strongly recommend increasing hydration as well. 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 Physical Therapy Plan Frequency and Duration Frequency of Treatment 1x/Week Duration of treatment (weeks) 12 Plan of Care Start Date 07/25/24 Plan of Care End Date 10/28/24 Therapeutic Interventions Therapeutic Interventions Home Exercise Program,Manual Therapy,Neuromuscular Re- education,Patient/Caregiver Education,Taping,Therapeutic Activities,Therapeutic Exercises Other Therapeutic Interventions CHUCK techniques Next Visit Focus/Plan Next Visit Plan supine on foam roller, wall slides with band, gastoroc stretch start on treadmill to assess walking, jogging, running gait shuttle for B and single leg squats, address any joint deviations shuttle jumps, assess eccentric loading capabilities
--- NOTE | 2024-07-25 10:34 | PT.OPPOC ---
Physical, Occupational & Speech Therapy At Current Diagnoses Other chronic pain (07/25/24) Pain in unspecified knee (07/25/24) Visit Care Team Role Provider Type Nathan Rodriguez DO Attending Provider Physician Family Provider Primary Care Provider Referring Provider Specialty: Family Practice Address: [address] [place] [address], [address], [facility] Email: [email or web address] Plan Of Care PT-OP-B Current Condition Start: 07/24/24 13:20 Freq: Status: Active Protocol: Document 07/25/24 08:05 KW (Rec: 07/25/24 09:51 KW [id number]) Current Condition History of Current Condition Onset Date chronic Current Complaints B shoulder and knee pain, arthritis controlled with diet and exercise NSAID History of Current Condition would like to figure out way to strengthen his joints without causing further damage. Has been under a great deal of stress, was stress eating, not taking care of himself and is seeking out providers to help him re-set, help with accountability. Currently working with chiro, massage, receiving coordinator. 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 would like to get back to the [employer], swimming and running. Prior Treatments and Tests chronic TBI, multiple concussions over the hears, has been thrown off of horses, hit head on construction beams, etc. Future Testing and Treatments Planned anticipates B shoulder and knee replacements in the future. Developmental History Developmental History na Treatment Goals Patient/Caregiver Goals to prolong the health of his joints. 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 Baseline Function- Recreation/Hobbies boxing, running, [employer], [employer], swimming Baseline Function- Other horse riding Current Functional Impairments (Reported) Functional Limitations- ADL's TBI, memory deficits, motivation Personal Factors Other Personal Factors That May Effect stress, co-morbidities of TBI Therapy/Recovery PT-OP-T Assessment and Plan Start: 07/24/24 13:20 Freq: Status: Active Protocol: Document 07/25/24 08:05 KW (Rec: 07/25/24 09:51 KW [id number]) Physical Therapy Assessment Rehab Potential Rehabilitation Potential Excellent Evaluation Complexity Number of Personal Factors/Co-morbidities 1-2 Number of Body Systems Impaired 1-2 Clinical Presentation at Evaluation Stable Impairments Impairments Functional Mobility,Pain, Posture,Strength Goals 3 Impairment CORE strength/recruitment 3/5 Short Term Goal (STG) improve CORE 4/5, able to hold plank correct alignment 1 min STG Duration 6 weeks Supervisor [employer] Goal (LTG) hold 2 min LTG Duration 12 weeks 2 Impairment pain 5/10 Short Term Goal (STG) reduce pain to 3/10 STG Duration 6 weeks Supervisor [employer] Goal (LTG) pain to 1/ 10 LTG Duration 12 weeks 1 Impairment LEFS 43% Short Term Goal (STG) increase LEFS to 60% STG Duration 6 weeks Supervisor [employer] Goal (LTG) increase LEFS to 80% LTG Duration 12 weeks Assessment Summary Assessment 42 y/o male presents with B Shoulder and knee pain due to years of extreme activity/work . He is addressing his arthritis with diet, exercise, stress management and nutrition. strongly recommend increasing hydration as well. 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 Physical Therapy Plan Frequency and Duration Frequency of Treatment 1x/Week Duration of treatment (weeks) 12 Plan of Care Start Date 07/25/24 Plan of Care End Date 10/28/24 Therapeutic Interventions Therapeutic Interventions Home Exercise Program,Manual Therapy,Neuromuscular Re- education,Patient/Caregiver Education,Taping,Therapeutic Activities,Therapeutic Exercises Other Therapeutic Interventions CHUCK techniques Next Visit Focus/Plan Next Visit Plan supine on foam roller, wall slides with band, gastoroc stretch start on treadmill to assess walking, jogging, running gait shuttle for B and single leg squats, address any joint deviations shuttle jumps, assess eccentric loading capabilities Plan of Care Dates Plan of Care Start Date 07/25/24 Plan of Care End Date 10/28/24 Electronically Signed by: Luisa Garcia DPT 07/25/24 1921 If you are in agreement with this Plan of Care, please return a signed and dated copy. I have reviewed this Plan of Care and certify that the skilled therapy services above are required to meet the patient?s needs. Physician Signature Date Printed Name and Credentials Clinical Instructor Signature Printed Name and Credentials
--- NOTE | 2024-07-25 12:16 | PT.OPPOC ---
Physical, Occupational & Speech Therapy At [facility] Current Diagnoses Other chronic pain (07/25/24) Pain in unspecified knee (07/25/24) Visit Care Team Role Provider Type Nathan Rodriguez DO Attending Provider Physician Family Provider Primary Care Provider Referring Provider Specialty: Family Practice Address: [address] [place] [address], [address], [facility] Email: [email or web address] Plan Of Care PT-OP-B Current Condition Start: 07/24/24 13:20 Freq: Status: Active Protocol: Document 07/25/24 08:05 KW (Rec: 07/25/24 09:51 KW [id number]) Current Condition History of Current Condition Onset Date chronic Current Complaints B shoulder and knee pain, arthritis controlled with diet and exercise NSAID History of Current Condition would like to figure out way to strengthen his joints without causing further damage. Has been under a great deal of stress, was stress eating, not taking care of himself and is seeking out providers to help him re-set, help with accountability. Currently working with chiro, massage, human resources recruiter. 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 would like to get back to the [employer], swimming and running. Prior Treatments and Tests chronic TBI, multiple concussions over the hears, has been thrown off of horses, hit head on construction beams, etc. Future Testing and Treatments Planned anticipates B shoulder and knee replacements in the future. Developmental History Developmental History na Treatment Goals Patient/Caregiver Goals to prolong the health of his joints. 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 Baseline Function- Recreation/Hobbies boxing, running, [employer], [employer], swimming Baseline Function- Other horse riding Current Functional Impairments (Reported) Functional Limitations- ADL's TBI, memory deficits, motivation Personal Factors Other Personal Factors That May Effect stress, comorbidites of TBI Therapy/Recovery PT-OP-T Assessment and Plan Start: 07/24/24 13:20 Freq: Status: Active Protocol: Document 07/25/24 08:05 KW (Rec: 07/25/24 09:51 KW [id number]) Physical Therapy Assessment Rehab Potential Rehabilitation Potential Excellent Evaluation Complexity Number of Personal Factors/Comorbidities 1-2 Number of Body Systems Impaired 1-2 Clinical Presentation at Evaluation Stable Impairments Impairments Functional Mobility,Pain, Posture,Strength Goals 3 Impairment CORE strength/recruitment 3/5 Short Term Goal (STG) improve CORE 4/5, able to hold plank correct alignment 1 min STG Duration 6 weeks Prison Goal (LTG) hold 2 min LTG Duration 12 weeks 2 Impairment pain 5/10 Short Term Goal (STG) reduce pain to 3/10 STG Duration 6 weeks Prison Goal (LTG) pain to 1/ 10 LTG Duration 12 weeks 1 Impairment LEFS 43% Short Term Goal (STG) increase LEFS to 60% STG Duration 6 weeks Shoe Ironer Goal (LTG) increase LEFS to 80% LTG Duration 12 weeks Assessment Summary Assessment 42 y/o male presents with B Shoulder and knee pain due to years of extreme activity/work . He is addressing his arthritis with diet, exercise, stress management and nutrition. strongly recommend increasing hydration as well. 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 Physical Therapy Plan Frequency and Duration Frequency of Treatment 1x/Week Duration of treatment (weeks) 12 Plan of Care Start Date 07/25/24 Plan of Care End Date 10/28/24 Therapeutic Interventions Therapeutic Interventions Home Exercise Program,Manual Therapy,Neuromuscular Re- education,Patient/Caregiver Education,Taping,Therapeutic Activities,Therapeutic Exercises Other Therapeutic Interventions CHUCK techniques Next Visit Focus/Plan Next Visit Plan supine on foam roller, wall slides with band, gastoroc stretch start on treadmill to assess walking, jogging, running gait shuttle for B and single leg squats, address any joint deviations shuttle jumps, assess eccentric loading capabilities Plan of Care Dates Plan of Care Start Date 07/25/24 Plan of Care End Date 10/28/24 Electronically Signed by: Luisa Garcia, PT 07/25/24 1003 If you are in agreement with this Plan of Care, please return a signed and dated copy. I have reviewed this Plan of Care and certify that the skilled therapy services above are required to meet the patient?s needs. Physician Signature Date Printed Name and Credentials Clinical Instructor Signature Printed Name and Credentials
--- NOTE | 2024-07-31 10:54 | PT.OTN ---
Current Diagnoses Other chronic pain (07/31/24) Pain in unspecified knee (07/31/24) Physical Therapy Treatment Note PT-OP-A Visit Information Start: 07/24/24 13:20 Freq: Status: Active Protocol: Document 07/31/24 08:58 KW (Rec: 07/31/24 10:54 KW Laptop) Out-Patient Physical Therapy Visit Information Visit Information Visit Type Treatment Note Visit Start Time 09:00 Visit Stop Time 09:45 Visit Number 2 Evaluation Information Evaluation Date 07/25/24 Precautions Precautions none PT-OP-B Current Condition Start: 07/24/24 13:20 Freq: Status: Active Protocol: Document 07/31/24 08:58 KW (Rec: 07/31/24 10:54 KW Laptop) Current Condition History of Current Condition Onset Date h/o many traumas Current Complaints B shoulder and knee pain, arthritis controlled with diet and exercise NSAID History of Current Condition would like to figure out way to strengthen his joints without causing further damange. Has been under a great deal of stress, was stress eating, not taking care of himself and is seaking out providers to help him re-set, help with accountability. Currently working with chiro, masssage, matrix worker. 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 would like to get back to the [employer], swimming and running. Prior Treatments and Tests chronic TBI, multiple concussions over the hears, has been thrown off of horses, hit head on construction beams, etc. Future Testing and Treatments Planned anticipates B shoulder and knee replacements in the future. PT-OP-C Subjective Start: 07/24/24 13:20 Freq: Status: Active Protocol: Document 07/31/24 08:58 KW (Rec: 07/31/24 10:54 KW Laptop) OP-PT Subjective Patient Comments Patient Comments R lower rib is out will be seeing chiropractor today. has been working on the exercises and they are helpful. has a 90 min massage later today OP-PT Pain Assessment Pain Assessment Grid Paper Pain Assessment Grid Completed Yes Location knees Intensity 5 Scale Used Numeric (0 - 10) Description Aching Frequency Frequent Pain Aggravating Factors Position,Changing Position, Activity,Exercise,Standing, Sitting,Stair Climbing,Bending Pain Alleviating Factors Cold,Heat,Medication,Position, Exercise,Massage Shoulder Intensity 5 Scale Used Numeric (0 - 10) Description Aching Frequency Frequent Pain Aggravating Factors Position,Changing Position,ADL 's,Activity,Exercise Pain Alleviating Factors Cold,Heat,Medication,Position, Exercise,Massage PT-OP-D Balance Start: 07/24/24 13:20 Freq: Status: Active Protocol: Document 07/25/24 08:05 KW (Rec: 07/25/24 09:51 KW [id number]) OP-PT Balance Assessment Sitting Balance Static Sitting Balance Ability Normal Dynamic Sitting Balance Ability Normal Standing Balance Static Standing Balance Ability Normal Dynamic Standing Balance Ability Normal Wright Fall Scale Copyright Permission PT-OP-E Functional Tests Start: 07/24/24 13:20 Freq: Status: Active Protocol: Document 07/25/24 08:05 KW (Rec: 07/25/24 09:51 KW [id number]) Functional Tests Apley's Scratch Test Action 3- Right + PT-OP-F Manual Assessment Start: 07/24/24 13:20 Freq: Status: Active Protocol: Document 07/25/24 08:05 KW (Rec: 07/25/24 09:51 KW [id number]) Manual Assessments Soft Tissue Assessment Soft Tissue Mobility Assessment elevated ribs, hypertonic B Upper traps, Joint Mobility Assessment Joint Mobility Assessment decreased upward rotation of scaps, tends to pull into shrug with overhead lifting, able to correct with tactile and verbal cues for low trap and serratus anterior engagement. Other Manual Assessments Other Manual Assessments cervical spine and diaphragm shifted right, improved with reposition of diaphragm and sternum PT-OP-G Mobility & Gait Start: 07/24/24 13:20 Freq: Status: Active Protocol: Document 07/25/24 08:05 KW (Rec: 07/25/24 09:51 KW [id number]) OP Mobility Evaluation Functional Movements Squats wide NIGEL, heels lifting off of ground Running Assessment TBD OP Gait Assessment Comments Gait Comments decreased big toe push off, improved with gastroc stretch, with elevated toes, emphasis on medial head of gastroc PT-OP-J Posture/Palpation/Skin Start: 07/24/24 13:20 Freq: Status: Active Protocol: Document 07/25/24 08:05 KW (Rec: 07/25/24 09:51 KW [id number]) Posture Evaluation Position Standing TMJ Posture Lips Together T-Spine Posture Flattened Thorax Posture Barrel Chested L-Spine Posture Flattened,Increased Lordosis Shoulder Posture (R) Rounded Scapula Posture (L) Protracted Pelvis Posture Anteriorly Tilted Weight Distribution Weight Shifted Right Ankle/Foot Posture (R) Supinated Foot Arch (R) High Arch PT-OP-K Range of Motion Start: 07/24/24 13:20 Freq: Status: Active Protocol: Document 07/25/24 08:05 KW (Rec: 07/25/24 09:51 KW [id number]) Lumbar Spine Range of Motion Lumbar Spine Active Flexion 45 Extension 70 Rotation Left 30 Rotation Right 40 ROM Limitations Soft Tissue Tightness,Muscle Tone Comments increased resting tone R SCM, scalenes, improved with sternum and diaphragm repositoining Shoulder Goniometric Range of Motion Shoulder ROM Limitations Shoulder ROM Limitations Muscle Weakness Comments decreased upward rotation of R > L scap with Sahrmann wall slide PT-OP-M Strength Start: 07/24/24 13:20 Freq: Status: Active Protocol: Document 07/25/24 08:05 KW (Rec: 07/25/24 09:51 KW [id number]) Trunk Strength Trunk Manual Muscle Testing Core Stabilization decreased recruitment of IO/TA with plank, push ups, tends to hold breath. Much improved with manual and verbal cues Comments B UE/LE motor 5/5 throughout PT-OP-Q Treatments Start: 07/24/24 13:20 Freq: Status: Active Protocol: Document 07/31/24 08:58 KW (Rec: 07/31/24 10:54 KW Laptop) Cardio Equipment Elliptical Duration (Minutes) 6 Resistance 3 Other 3 forward, 3 back Therapeutic Exercises Supine Exercises 1 Supine Exercise Name supine on foam roller, B scap protraction, retraction, shoulder circles, Side bilateral Equipment Used black foam roller Reps/Minutes 5 min Comments emphasis on lower ribs down in front, reduce lumbar extension Standing Exercises 1 Standing Exercise Name B UE wall slides with bandTing B Low trap recruitment Side bilateral Resistance light band Reps/Minutes 10 Comments emphasis on ribs DOWN in front , reduce lumbar extension, coordinate w/breat Other Exercises B overheadSantiago Other Exercise Name B UE wall slides with band around wrists, low trap pull away Reps/Minutes 10 Comments max cues to keep ribs down in front with IO/TA contraction CHUCK posterior expansion Other Exercise Name latt stretch in squat stance, both B and single R/L Equipment Used post/pole to hold/hang Reps/Minutes 3 x 30 sec each Comments used his phone to take a picture of form and technique 2 Other Exercise Name standing gastroc stretch with 1/2 foam roller, Side bilateral Reps/Minutes 30 sec holds Comments emphasis on neutral calc alignment as tends to roll to lateral calc 1 Other Exercise Name all fours, cat/cow, child pose , child pose latt stretch Side bilateral Reps/Minutes 5 breaths each Comments emphasis on reducing lumbar extension with cat, posterior mediastinum expan Manual Therapy Treatment Consent Patient gave verbal consent for manual Yes treatment Joint Mobilizations Tspine prone, general Joint prone over pillows Direction PA Grade III Body Position Prone Reps/Duration 5 min Comments excellent relief. Manual Techniques 1 Type CHUCK manual repositoing of diaphragm, sternum, ribs, C spine, cranium Body Position Supine Reps/Duration 3 each Comments emphasis on nose breathing, lengthening exhale, pause at end of exhale Neuro Re-Education Treatment Movement Re-Education Movement Re-education Activities low trap recruitment and upper trap inhibition Self-Care/Home Management Treatment Education Patient Education Home Exercise Program,Joint Protection,Pain Management, Posture PT-OP-T Assessment and Plan Start: 07/24/24 13:20 Freq: Status: Active Protocol: Document 07/31/24 08:58 KW (Rec: 07/31/24 10:54 KW Laptop) Physical Therapy Assessment Goals 3 Impairment CORE strength/recruitment 3/5 Short Term Goal (STG) improve CORE 4/5, able to hold plank correct alignment 1 min STG Duration 6 weeks Detention Goal (LTG) hold 2 min LTG Duration 12 weeks 2 Impairment pain 5/10 Short Term Goal (STG) reduce pain to 3/10 STG Duration 6 weeks Detention Goal (LTG) pain to 1/ 10 LTG Duration 12 weeks 1 Impairment LEFS 43% Short Term Goal (STG) increase LEFS to 60% STG Duration 6 weeks Detention Goal (LTG) increase LEFS to 80% LTG Duration 12 weeks Assessment Summary Assessment excellent relief today of R lower rib misalignment both with CHUCK manual and non manual techniques. patient felt good relief with new exercises today and now has new strategies for when he gets stuck Physical Therapy Plan Frequency and Duration Frequency of Treatment 1x/Week Duration of treatment (weeks) 12 Plan of Care Start Date 07/25/24 Plan of Care End Date 10/28/24 Therapeutic Interventions Therapeutic Interventions Home Exercise Program,Manual Therapy,Neuromuscular Re- education,Patient/Caregiver Education,Taping,Therapeutic Activities,Therapeutic Exercises Other Therapeutic Interventions CHUCK techniques Next Visit Focus/Plan Next Visit Plan shuttle work, eccentric loading
--- NOTE | 2024-08-14 09:46 | PT.OTN ---
Current Diagnoses Other chronic pain (08/14/24) Pain in unspecified knee (08/14/24) Physical Therapy Treatment Note PT-OP-A Visit Information Start: 07/24/24 13:20 Freq: Status: Active Protocol: Document 08/14/24 09:09 KW (Rec: 08/14/24 09:46 KW Laptop) Out-Patient Physical Therapy Visit Information Visit Information Visit Type Treatment Note Visit Start Time 09:00 Visit Stop Time 09:45 Visit Number 1 Number of CARPENTER FORM Visits 0 Evaluation Information Evaluation Date 08/14/24 Precautions Precautions none PT-OP-B Current Condition Start: 07/24/24 13:20 Freq: Status: Active Protocol: Document 07/31/24 08:58 KW (Rec: 07/31/24 10:54 KW Laptop) Current Condition History of Current Condition Onset Date h/o many traumas Current Complaints B shoulder and knee pain, arthritis controlled with diet and exercise NSAID History of Current Condition would like to figure out way to strengthen his joints without causing further damange. Has been under a great deal of stress, was stress eating, not taking care of himself and is seaking out providers to help him re-set, help with accountability. 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 would like to get back to the [employer], swimming and running. Prior Treatments and Tests chronic TBI, multiple concussions over the hears, has been thrown off of horses, hit head on construction beams, etc. Future Testing and Treatments Planned anticipates B shoulder and knee replacements in the future. PT-OP-C Subjective Start: 07/24/24 13:20 Freq: Status: Active Protocol: Document 08/14/24 09:09 KW (Rec: 08/14/24 09:46 KW Laptop) OP-PT Subjective Patient Comments Patient Comments ran 2.5 miles on treadmill, mid T-spine pain comes and goes. Improved with hydration. riding bikes with kids, paddle boarding, ping pong Patient Reported Progress Improving PT-OP-D Balance Start: 07/24/24 13:20 Freq: Status: Active Protocol: Document 07/25/24 08:05 KW (Rec: 07/25/24 09:51 KW [id number]) OP-PT Balance Assessment Sitting Balance Static Sitting Balance Ability Normal Dynamic Sitting Balance Ability Normal Standing Balance Static Standing Balance Ability Normal Dynamic Standing Balance Ability Normal Wright Fall Scale Copyright Permission PT-OP-E Functional Tests Start: 07/24/24 13:20 Freq: Status: Active Protocol: Document 07/25/24 08:05 KW (Rec: 07/25/24 09:51 KW [id number]) Functional Tests Apley's Scratch Test Action 3- Right + PT-OP-F Manual Assessment Start: 07/24/24 13:20 Freq: Status: Active Protocol: Document 07/25/24 08:05 KW (Rec: 07/25/24 09:51 KW [id number]) Manual Assessments Soft Tissue Assessment Soft Tissue Mobility Assessment elevated ribs, hypertonic B Upper traps, Joint Mobility Assessment Joint Mobility Assessment decreased upward rotation of scaps, tends to pull into shrug with overhead lifting, able to correct with tactile and verbal cues for low trap and serratus anterior engagement. Other Manual Assessments Other Manual Assessments cervical spine and diaphragm shifted right, improved with reposition of diaphragm and sternum PT-OP-G Mobility & Gait Start: 07/24/24 13:20 Freq: Status: Active Protocol: Document 07/25/24 08:05 KW (Rec: 07/25/24 09:51 KW [id number]) OP Mobility Evaluation Functional Movements Squats wide NIGEL, heels lifting off of ground Running Assessment TBD OP Gait Assessment Comments Gait Comments decreased big toe push off, improved with gastroc stretch, with elevated toes, emphasis on medial head of gastroc PT-OP-J Posture/Palpation/Skin Start: 07/24/24 13:20 Freq: Status: Active Protocol: Document 07/25/24 08:05 KW (Rec: 07/25/24 09:51 KW [id number]) Posture Evaluation Position Standing TMJ Posture Lips Together T-Spine Posture Flattened Thorax Posture Barrel Chested L-Spine Posture Flattened,Increased Lordosis Shoulder Posture (R) Rounded Scapula Posture (L) Protracted Pelvis Posture Anteriorly Tilted Weight Distribution Weight Shifted Right Ankle/Foot Posture (R) Supinated Foot Arch (R) High Arch PT-OP-K Range of Motion Start: 07/24/24 13:20 Freq: Status: Active Protocol: Document 07/25/24 08:05 KW (Rec: 07/25/24 09:51 KW [id number]) Lumbar Spine Range of Motion Lumbar Spine Active Flexion 45 Extension 70 Rotation Left 30 Rotation Right 40 ROM Limitations Soft Tissue Tightness,Muscle Tone Comments increased resting tone R SCM, scalenes, improved with sternum and diaphragm repositoining Shoulder Goniometric Range of Motion Shoulder ROM Limitations Shoulder ROM Limitations Muscle Weakness Comments decreased upward rotation of R > L scap with Sahrmann wall slide PT-OP-M Strength Start: 07/24/24 13:20 Freq: Status: Active Protocol: Document 07/25/24 08:05 KW (Rec: 07/25/24 09:51 KW [id number]) Trunk Strength Trunk Manual Muscle Testing Core Stabilization decreased recruitment of IO/TA with plank, push ups, tends to hold breath. Much improved with manual and verbal cues Comments B UE/LE motor 5/5 throughout PT-OP-Q Treatments Start: 07/24/24 13:20 Freq: Status: Active Protocol: Document 08/14/24 09:09 KW (Rec: 08/14/24 09:46 KW Laptop) Cardio Equipment Elliptical Duration (Minutes) 6 Resistance 3 Other 3 forward, 3 back Gym Equipment Shuttle Recovery jumps Resistance 67# Reps/Time x 10 single leg Details single leg Reps/Time 2 x 10 Bilateral Squats Details B squats Resistance 67# Reps/Time 3 x 10 Therapeutic Exercises Supine Exercises 1 Supine Exercise Name supine on foam roller, B scap protraction, retraction, shoulder circles, Side bilateral Equipment Used black foam roller Reps/Minutes 5 min Comments emphasis on lower ribs down in front, reduce lumbar extension Standing Exercises 1 Standing Exercise Name B UE wall slides with bandTing B Low trap recruitment Side bilateral Resistance light band Reps/Minutes 10 Comments emphasis on ribs DOWN in front , reduce lumbar extension, coordinate w/breat Other Exercises B overheadSantiago Other Exercise Name B UE wall slides with band around wrists, low trap pull away Reps/Minutes 10 Comments max cues to keep ribs down in front with IO/TA contraction CHUCK posterior expansion Other Exercise Name latt stretch in squat stance, both B and single R/L Equipment Used post/pole to hold/hang Reps/Minutes 3 x 30 sec each Comments used his phone to take a picture of form and technique 2 Other Exercise Name standing gastroc stretch with 1/2 foam roller, Side bilateral Reps/Minutes 30 sec holds Comments emphasis on neutral calc alignment as tends to roll to lateral calc 1 Other Exercise Name all fours, cat/cow, child pose , child pose latt stretch Side bilateral Reps/Minutes 5 breaths each Comments emphasis on reducing lumbar extension with cat, posterior mediastinum expan Manual Therapy Treatment Joint Mobilizations Tspine prone, general Joint prone over pillows Direction PA Grade III Body Position Prone Reps/Duration 5 min Comments excellent relief. Manual Techniques 1 Type CHUCK manual repositoing of diaphragm, sternum, ribs, C spine, cranium Body Position Supine Reps/Duration 3 each Comments emphasis on nose breathing, lengthening exhale, pause at end of exhale PT-OP-T Assessment and Plan Start: 07/24/24 13:20 Freq: Status: Active Protocol: Document 08/14/24 09:09 KW (Rec: 08/14/24 09:46 KW Laptop) Physical Therapy Assessment Goals 3 Impairment CORE strength/recruitment 3/5 Short Term Goal (STG) improve CORE 4/5, able to hold plank correct alignment 1 min STG Duration 6 weeks Mold Blower Goal (LTG) hold 2 min LTG Duration 12 weeks 2 Impairment pain 5/10 Short Term Goal (STG) reduce pain to 3/10 STG Duration 6 weeks Halfway Goal (LTG) pain to 1/ 10 LTG Duration 12 weeks 1 Impairment LEFS 43% Short Term Goal (STG) increase LEFS to 60% STG Duration 6 weeks Mold Blower Goal (LTG) increase LEFS to 80% LTG Duration 12 weeks Assessment Summary Assessment excellent progression thru CORE strengthening, flexibility, eccentric loading . Sx resolving nicely Physical Therapy Plan Frequency and Duration Frequency of Treatment 1x/Week Duration of treatment (weeks) 12 Plan of Care Start Date 07/25/24 Plan of Care End Date 10/28/24 Therapeutic Interventions Therapeutic Interventions Home Exercise Program,Manual Therapy,Neuromuscular Re- education,Patient/Caregiver Education,Taping,Therapeutic Activities,Therapeutic Exercises Other Therapeutic Interventions CHUCK techniques Next Visit Focus/Plan Next Visit Plan shuttle work, eccentric loading BOSU work with richard
--- NOTE | 2024-08-28 09:14 | PT-OP ANOTE ---
Pt did not show for today's appt. PROMOTIONS EXECUTIVE called within 7 min of appt. Voice message left, importance of attendance for support progression in PT and mobility per POC. PROMOTIONS EXECUTIVE mentioned noted 2 cancels and today NS. Reminded policy signed 2 NS will be automatically DC and if cancel >50 appts scheduled can potentially be DC. PROMOTIONS EXECUTIVE stated only 1 more appt with PROMOTIONS EXECUTIVE and no follow up with PT Luisa, suggested to call back and schedule at least 1 more appt with PT Luisa for 30 day PN. Reminded next appt 09/04/24.
--- NOTE | 2024-08-29 12:19 | PT.OTN ---
Current Diagnoses Other chronic pain (08/29/24) Pain in unspecified knee (08/29/24) Physical Therapy Treatment Note PT-OP-A Visit Information Start: 07/24/24 13:20 Freq: Status: Active Protocol: Document 08/29/24 12:13 KW (Rec: 08/29/24 12:19 KW Laptop) Out-Patient Physical Therapy Visit Information Visit Information Visit Type Treatment Note Visit Start Time 11:30 Visit Stop Time 12:14 Visit Number 3 Evaluation Information Evaluation Date 08/14/24 Precautions Precautions none PT-OP-B Current Condition Start: 07/24/24 13:20 Freq: Status: Active Protocol: Document 07/31/24 08:58 KW (Rec: 07/31/24 10:54 KW Laptop) Current Condition History of Current Condition Onset Date h/o many traumas Current Complaints B shoulder and knee pain, arthritis controlled with diet and exercise NSAID History of Current Condition would like to figure out way to strengthen his joints without causing further damange. Has been under a great deal of stress, was stress eating, not taking care of himself and is seaking out providers to help him re-set, help with accountability. 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 would like to get back to the [employer], swimming and running. Prior Treatments and Tests chronic TBI, multiple concussions over the hears, has been thrown off of horses, hit head on construction beams, etc. Future Testing and Treatments Planned anticipates B shoulder and knee replacements in the future. PT-OP-C Subjective Start: 07/24/24 13:20 Freq: Status: Active Protocol: Document 08/29/24 12:13 KW (Rec: 08/29/24 12:19 KW Laptop) OP-PT Subjective Patient Comments Patient Comments ran [address] knees sore but back is much better. OP-PT Pain Assessment Location knees Intensity 2 PT-OP-D Balance Start: 07/24/24 13:20 Freq: Status: Active Protocol: Document 07/25/24 08:05 KW (Rec: 07/25/24 09:51 KW [id number]) OP-PT Balance Assessment Sitting Balance Static Sitting Balance Ability Normal Dynamic Sitting Balance Ability Normal Standing Balance Static Standing Balance Ability Normal Dynamic Standing Balance Ability Normal Wright Fall Scale Copyright Permission PT-OP-E Functional Tests Start: 07/24/24 13:20 Freq: Status: Active Protocol: Document 07/25/24 08:05 KW (Rec: 07/25/24 09:51 KW [id number]) Functional Tests Apley's Scratch Test Action 3- Right + PT-OP-F Manual Assessment Start: 07/24/24 13:20 Freq: Status: Active Protocol: Document 07/25/24 08:05 KW (Rec: 07/25/24 09:51 KW [id number]) Manual Assessments Soft Tissue Assessment Soft Tissue Mobility Assessment elevated ribs, hypertonic B Upper traps, Joint Mobility Assessment Joint Mobility Assessment decreased upward rotation of scaps, tends to pull into shrug with overhead lifting, able to correct with tactile and verbal cues for low trap and serratus anterior engagement. Other Manual Assessments Other Manual Assessments cervical spine and diaphragm shifted right, improved with reposition of diaphragm and sternum PT-OP-G Mobility & Gait Start: 07/24/24 13:20 Freq: Status: Active Protocol: Document 07/25/24 08:05 KW (Rec: 07/25/24 09:51 KW [id number]) OP Mobility Evaluation Functional Movements Squats wide NIGEL, heels lifting off of ground Running Assessment TBD OP Gait Assessment Comments Gait Comments decreased big toe push off, improved with gastroc stretch, with elevated toes, emphasis on medial head of gastroc PT-OP-J Posture/Palpation/Skin Start: 07/24/24 13:20 Freq: Status: Active Protocol: Document 07/25/24 08:05 KW (Rec: 07/25/24 09:51 KW [id number]) Posture Evaluation Position Standing TMJ Posture Lips Together T-Spine Posture Flattened Thorax Posture Barrel Chested L-Spine Posture Flattened,Increased Lordosis Shoulder Posture (R) Rounded Scapula Posture (L) Protracted Pelvis Posture Anteriorly Tilted Weight Distribution Weight Shifted Right Ankle/Foot Posture (R) Supinated Foot Arch (R) High Arch PT-OP-K Range of Motion Start: 07/24/24 13:20 Freq: Status: Active Protocol: Document 07/25/24 08:05 KW (Rec: 07/25/24 09:51 KW [id number]) Lumbar Spine Range of Motion Lumbar Spine Active Flexion 45 Extension 70 Rotation Left 30 Rotation Right 40 ROM Limitations Soft Tissue Tightness,Muscle Tone Comments increased resting tone R SCM, scalenes, improved with sternum and diaphragm repositoining Shoulder Goniometric Range of Motion Shoulder ROM Limitations Shoulder ROM Limitations Muscle Weakness Comments decreased upward rotation of R > L scap with Sahrmann wall slide PT-OP-M Strength Start: 07/24/24 13:20 Freq: Status: Active Protocol: Document 07/25/24 08:05 KW (Rec: 07/25/24 09:51 KW [id number]) Trunk Strength Trunk Manual Muscle Testing Core Stabilization decreased recruitment of IO/TA with plank, push ups, tends to hold breath. Much improved with manual and verbal cues Comments B UE/LE motor 5/5 throughout PT-OP-Q Treatments Start: 07/24/24 13:20 Freq: Status: Active Protocol: Document 08/29/24 12:13 KW (Rec: 08/29/24 12:19 KW Laptop) Cardio Equipment Elliptical Duration (Minutes) 6 Resistance 3 Other 3 forward, 3 back Gym Equipment Shuttle Recovery jumps Resistance 67# Reps/Time x 10 Bilateral Squats Details B squats Resistance 67# Reps/Time 3 x 10 Therapeutic Exercises Supine Exercises 1 Supine Exercise Name supine on foam roller, B scap protraction, retraction, shoulder circles, Side bilateral Equipment Used black foam roller Reps/Minutes 5 min Comments emphasis on lower ribs down in front, reduce lumbar extension Standing Exercises 1 Standing Exercise Name B UE wall slides with band, Ting [place], [place]illerm[place] Low trap recruitment Side bilateral Resistance light band Reps/Minutes 10 Comments emphasis on ribs DOWN in front , reduce lumbar extension, coordinate w/breat Other Exercises LE stretching Other Exercise Name quad, hamstring, gastroc, lunge Side bilateral Equipment Used strap, ba wedge Comments supine hamstring, standing lunge and gastroc B overhead, Sahrmann Other Exercise Name B UE wall slides with band around wrists, low trap pull away Reps/Minutes 10 Comments max cues to keep ribs down in front with IO/TA contraction CHUCK posterior expansion Other Exercise Name latt stretch in squat stance, both B and single R/L Equipment Used post/pole to hold/hang Reps/Minutes 3 x 30 sec each Comments used his phone to take a picture of form and technique 2 Other Exercise Name standing gastroc stretch with 1/2 foam roller, Side bilateral Reps/Minutes 30 sec holds Comments emphasis on neutral calc alignment as tends to roll to lateral calc 1 Other Exercise Name all fours, cat/cow, child pose , child pose latt stretch Side bilateral Reps/Minutes 5 breaths each Comments emphasis on reducing lumbar extension with cat, posterior mediastinum expan Manual Therapy Treatment Consent Patient gave verbal consent for manual Yes treatment Joint Mobilizations Tspine prone, general Joint prone over pillows Direction PA Grade III Body Position Prone Reps/Duration 5 min Comments excellent relief. Manual Techniques 1 Type CHUCK manual repositoing of diaphragm, sternum, ribs, C spine, cranium Body Position Supine Reps/Duration 3 each Comments emphasis on nose breathing, lengthening exhale, pause at end of exhale Neuro Re-Education Treatment Movement Re-Education Movement Re-education Activities low trap recruitment and upper trap inhibition Self-Care/Home Management Treatment Education Patient Education Home Exercise Program,Joint Protection,Pain Management, Posture PT-OP-T Assessment and Plan Start: 07/24/24 13:20 Freq: Status: Active Protocol: Document 08/29/24 12:13 KW (Rec: 08/29/24 12:19 KW Laptop) Physical Therapy Assessment Goals 3 Impairment CORE strength/recruitment 3/5 Short Term Goal (STG) improve CORE 4/5, able to hold plank correct alignment 1 min STG Duration 6 weeks Garage Manager Goal (LTG) hold 2 min LTG Duration 12 weeks 2 Impairment pain 5/10 Short Term Goal (STG) reduce pain to 3/10 STG Duration 6 weeks Garage Manager Goal (LTG) pain to 1/ 10 LTG Duration 12 weeks 1 Impairment LEFS 43% Short Term Goal (STG) increase LEFS to 60% STG Duration 6 weeks Group Home Goal (LTG) increase LEFS to 80% LTG Duration 12 weeks Assessment Summary Assessment making great gains, meeting goals. Will be traveling for 3 weeks. Will come next week then check in when he returns but anticipate DC after that. Making great gains in fitness, flexibility, movement patterns, nutrition, hydration Physical Therapy Plan Frequency and Duration Frequency of Treatment 1x/Week Duration of treatment (weeks) 12 Plan of Care Start Date 07/25/24 Plan of Care End Date 10/28/24 Therapeutic Interventions Therapeutic Interventions Home Exercise Program,Manual Therapy,Neuromuscular Re- education,Patient/Caregiver Education,Taping,Therapeutic Activities,Therapeutic Exercises Other Therapeutic Interventions CHUCK techniques Next Visit Focus/Plan Next Note Type Treatment Note Next Visit Plan shuttle work, eccentric loading BOSU work with richard
--- NOTE | 2024-09-04 09:44 | PT.OTN ---
Current Diagnoses Other chronic pain (09/04/24) Pain in unspecified knee (09/04/24) Physical Therapy Treatment Note PT-OP-A Visit Information Start: 07/24/24 13:20 Freq: Status: Active Protocol: Document 09/04/24 09:04 PG (Rec: 09/04/24 10:33 PG Laptop) Out-Patient Physical Therapy Visit Information Visit Information Visit Type Treatment Note Visit Note SPTA Evon led tx with permission of pt and direct supervision of Kay MENDOSA. Visit Start Time 09:04 Visit Stop Time 09:44 Visit Number 4 Number of SPINDLE PLUMBER Visits 1 Evaluation Information Evaluation Date 08/14/24 Precautions Precautions none PT-OP-B Current Condition Start: 07/24/24 13:20 Freq: Status: Active Protocol: Document 07/31/24 08:58 KW (Rec: 07/31/24 10:54 KW Laptop) Current Condition History of Current Condition Onset Date h/o many traumas Current Complaints B shoulder and knee pain, arthritis controlled with diet and exercise NSAID History of Current Condition would like to figure out way to strengthen his joints without causing further damange. Has been under a great deal of stress, was stress eating, not taking care of himself and is seaking out providers to help him re-set, help with accountability. Currently working with brittaney moreno, director electronics. 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 would like to get back to the [facility], swimming and running. Prior Treatments and Tests chronic TBI, multiple concussions over the hears, has been thrown off of horses, hit head on construction beams, etc. Future Testing and Treatments Planned anticipates B shoulder and knee replacements in the future. PT-OP-C Subjective Start: 07/24/24 13:20 Freq: Status: Active Protocol: Document 09/04/24 09:04 PG (Rec: 09/04/24 10:33 PG Laptop) OP-PT Subjective Patient Comments Patient Comments Pt has been feeling good, worked out at the [facility] last night was able to run on the treadmill and use the rowing machine. Little bit of soreness on the R medial knee and lowback/hip. PT-OP-D Balance Start: 07/24/24 13:20 Freq: Status: Active Protocol: Document 07/25/24 08:05 KW (Rec: 07/25/24 09:51 KW [id number]) OP-PT Balance Assessment Sitting Balance Static Sitting Balance Ability Normal Dynamic Sitting Balance Ability Normal Standing Balance Static Standing Balance Ability Normal Dynamic Standing Balance Ability Normal Wright Fall Scale Copyright Permission PT-OP-E Functional Tests Start: 07/24/24 13:20 Freq: Status: Active Protocol: Document 07/25/24 08:05 KW (Rec: 07/25/24 09:51 KW [id number]) Functional Tests Apley's Scratch Test Action 3- Right + PT-OP-F Manual Assessment Start: 07/24/24 13:20 Freq: Status: Active Protocol: Document 07/25/24 08:05 KW (Rec: 07/25/24 09:51 KW [id number]) Manual Assessments Soft Tissue Assessment Soft Tissue Mobility Assessment elevated ribs, hypertonic B Upper traps, Joint Mobility Assessment Joint Mobility Assessment decreased upward rotation of scaps, tends to pull into shrug with overhead lifting, able to correct with tactile and verbal cues for low trap and serratus anterior engagement. Other Manual Assessments Other Manual Assessments cervical spine and diaphragm shifted right, improved with reposition of diaphragm and sternum PT-OP-G Mobility & Gait Start: 07/24/24 13:20 Freq: Status: Active Protocol: Document 07/25/24 08:05 KW (Rec: 07/25/24 09:51 KW [id number]) OP Mobility Evaluation Functional Movements Squats wide NIGEL, heels lifting off of ground Running Assessment TBD OP Gait Assessment Comments Gait Comments decreased big toe push off, improved with gastroc stretch, with elevated toes, emphasis on medial head of gastroc PT-OP-J Posture/Palpation/Skin Start: 07/24/24 13:20 Freq: Status: Active Protocol: Document 07/25/24 08:05 KW (Rec: 07/25/24 09:51 KW [id number]) Posture Evaluation Position Standing TMJ Posture Lips Together T-Spine Posture Flattened Thorax Posture Barrel Chested L-Spine Posture Flattened,Increased Lordosis Shoulder Posture (R) Rounded Scapula Posture (L) Protracted Pelvis Posture Anteriorly Tilted Weight Distribution Weight Shifted Right Ankle/Foot Posture (R) Supinated Foot Arch (R) High Arch PT-OP-K Range of Motion Start: 07/24/24 13:20 Freq: Status: Active Protocol: Document 07/25/24 08:05 KW (Rec: 07/25/24 09:51 KW [id number]) Lumbar Spine Range of Motion Lumbar Spine Active Flexion 45 Extension 70 Rotation Left 30 Rotation Right 40 ROM Limitations Soft Tissue Tightness,Muscle Tone Comments increased resting tone R SCM, scalenes, improved with sternum and diaphragm repositoining Shoulder Goniometric Range of Motion Shoulder ROM Limitations Shoulder ROM Limitations Muscle Weakness Comments decreased upward rotation of R > L scap with Sahrmann wall slide PT-OP-M Strength Start: 07/24/24 13:20 Freq: Status: Active Protocol: Document 07/25/24 08:05 KW (Rec: 07/25/24 09:51 KW [id number]) Trunk Strength Trunk Manual Muscle Testing Core Stabilization decreased recruitment of IO/TA with plank, push ups, tends to hold breath. Much improved with manual and verbal cues Comments B UE/LE motor 5/5 throughout PT-OP-Q Treatments Start: 07/24/24 13:20 Freq: Status: Active Protocol: Document 09/04/24 09:04 PG (Rec: 09/04/24 10:33 PG Laptop) Cardio Equipment Elliptical Duration (Minutes) 6 Resistance 3 Other 3 forward, 3 back Therapeutic Exercises Other Exercises Plank Other Exercise Name Forearm plank Reps/Minutes 2 minutes Comments cued for core/glute engagmnt, press through shldrs, knee ext Bosu Ball/Pulleys Other Exercise Name BosuBall w/ pulleys vs TB: shldr ex & pallof press Side bilateral Resistance lvl 3 ([place]) tb Equipment Used resistance bands at wall, bosu ball Reps/Minutes several Comments pelvis alignment, level feet, chest lift into t/s ext/ neutral LE stretching Other Exercise Name Reviewed: quad, gastroc Side bilateral Equipment Used ba wedge 1 Other Exercise Name Reviewed: added threading the needle Side bilateral Reps/Minutes 5 breaths each Comments cues for shldr ER, core ext, palms up w greg pose PT-OP-T Assessment and Plan Start: 07/24/24 13:20 Freq: Status: Active Protocol: Document 09/04/24 09:04 PG (Rec: 09/04/24 10:33 PG Laptop) Physical Therapy Assessment Goals 3 Impairment CORE strength/recruitment 3/5 Short Term Goal (STG) improve CORE 4/5, able to hold plank correct alignment 1 min STG Duration 6 weeks [facility] Goal (LTG) hold 2 min 09/04/24: Pt held forearm plank for 2min, required cues to engage glutes, ext knees, push through shoulders and engage core to protect back. Visible shakiness. LTG Duration 12 weeks 2 Impairment pain 5/10 Short Term Goal (STG) reduce pain to 3/10 14: Pt states pn is at a consistent 3-4/10 STG Duration 6 weeks Rn Travel Goal (LTG) pain to 1/ 10 LTG Duration 12 weeks 1 Impairment LEFS 43% Short Term Goal (STG) increase LEFS to 60% STG Duration 6 weeks [facility] Goal (LTG) increase LEFS to 80% LTG Duration 12 weeks Assessment Summary Assessment Trialed eccentric loading on bosuball with pulleys vs TheraBand anchored to the wall . Pt able to perform several reps of shoulder extension and bilateral pallof press on BOSU ball with mod cues to engage core, retract scapulas, slight bend in knees and neutral foot alignment, pt tolerated well and reported it as a good challenge. Added needle thread to quadruped exercises for thoracic and oblique mobility/stretch, cues for breathing and shoulder ER for increased stretch. Physical Therapy Plan Frequency and Duration Frequency of Treatment 1x/Week Duration of treatment (weeks) 12 Plan of Care Start Date 07/25/24 Plan of Care End Date 10/28/24 Therapeutic Interventions Therapeutic Interventions Home Exercise Program,Manual Therapy,Neuromuscular Re- education,Patient/Caregiver Education,Taping,Therapeutic Activities,Therapeutic Exercises Other Therapeutic Interventions CHUCK techniques Next Visit Focus/Plan Next Note Type Treatment Note Next Visit Plan shuttle work, Recheck eccentric loading BOSU work with theraband, thread the needle, Review any HEP and potential Discharge.
--- NOTE | 2024-10-16 09:31 | PT.OTN ---
Current Diagnoses Other chronic pain (10/16/24) Pain in unspecified knee (10/16/24) Physical Therapy Treatment Note PT-OP-A Visit Information Start: 07/24/24 13:20 Freq: Status: Active Protocol: Document 10/16/24 09:08 KW (Rec: 10/16/24 09:31 KW Laptop) Out-Patient Physical Therapy Visit Information Visit Information Visit Type Discharge Summary Visit Note discharge Visit Start Time 09:00 Visit Stop Time 09:45 Visit Number 5 Evaluation Information Evaluation Date 08/14/24 Precautions Precautions none PT-OP-B Current Condition Start: 07/24/24 13:20 Freq: Status: Active Protocol: Document 10/16/24 09:08 KW (Rec: 10/16/24 09:31 KW Laptop) Current Condition History of Current Condition Onset Date h/o many traumas Current Complaints B shoulder and knee pain, arthritis controlled with diet and exercise NSAID History of Current would like to figure out way to strengthen his joints Condition without causing further damange. Has been under a great deal of stress, was stress eating, not taking care of himself and is seaking out providers to help him re-set , help with accountability. 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 would like to get back to the [employer], swimming and running. Prior Treatments and chronic TBI, multiple concussions over the hears, has Tests been thrown off of horses, hit head on construction beams, etc. Future Testing and anticipates B shoulder and knee replacements in the Treatments Planned future. Developmental History Developmental na History Current Functional Impairments (Reported) Functional TBI, memory deficits, motivation Limitations- ADL's PT-OP-C Subjective Start: 07/24/24 13:20 Freq: Status: Active Protocol: Document 10/16/24 09:08 KW (Rec: 10/16/24 09:31 KW Laptop) OP-PT Subjective Patient Comments Patient Comments sore but feeling good, playing soccer ready to dc PT Patient Reported Improving Progress OP-PT Pain Assessment Pain Assessment Grid Paper Pain Yes Assessment Grid Completed Location knees Intensity 1 Shoulder Intensity 2 Scale Used Numeric (0 - 10) Description Aching Frequency Frequent Pain Aggravating Position,Changing Position,ADL's,Activity,Exercise Factors Pain Alleviating Cold,Heat,Medication,Position,Exercise,Massage Factors PT-OP-D Balance Start: 07/24/24 13:20 Freq: Status: Active Protocol: Document 07/25/24 08:05 KW (Rec: 07/25/24 09:51 KW [id number]) OP-PT Balance Assessment Sitting Balance Static Sitting Normal Balance Ability Dynamic Sitting Normal Balance Ability Standing Balance Static Standing Normal Balance Ability Dynamic Standing Normal Balance Ability Wright Fall Scale Copyright Permission PT-OP-E Functional Tests Start: 07/24/24 13:20 Freq: Status: Active Protocol: Document 07/25/24 08:05 KW (Rec: 07/25/24 09:51 KW [id number]) Functional Tests Apley's Scratch Test Action 3- Right + PT-OP-F Manual Assessment Start: 07/24/24 13:20 Freq: Status: Active Protocol: Document 07/25/24 08:05 KW (Rec: 07/25/24 09:51 KW [id number]) Manual Assessments Soft Tissue Assessment Soft Tissue Mobility elevated ribs, hypertonic B Upper traps, Assessment Joint Mobility Assessment Joint Mobility decreased upward rotation of scaps, tends to pull into Assessment shrug with overhead lifting, able to correct with tactile and verbal cues for low trap and serratus anterior engagement. Other Manual Assessments Other Manual cervical spine and diaphragm shifted right, improved Assessments with reposition of diaphragm and sternum PT-OP-G Mobility & Gait Start: 07/24/24 13:20 Freq: Status: Active Protocol: Document 07/25/24 08:05 KW (Rec: 07/25/24 09:51 KW [id number]) OP Mobility Evaluation Functional Movements Squats wide NIGEL, heels lifting off of ground Running Assessment TBD OP Gait Assessment Comments Gait Comments decreased big toe push off, improved with gastroc stretch, with elevated toes, emphasis on medial head of gastroc PT-OP-J Posture/Palpation/Skin Start: 07/24/24 13:20 Freq: Status: Active Protocol: Document 07/25/24 08:05 KW (Rec: 07/25/24 09:51 KW [id number]) Posture Evaluation Position Standing TMJ Posture Lips Together T-Spine Posture Flattened Thorax Posture Barrel Chested L-Spine Posture Flattened,Increased Lordosis Shoulder Posture (R) Rounded Scapula Posture (L) Protracted Pelvis Posture Anteriorly Tilted Weight Distribution Weight Shifted Right Ankle/Foot Posture (R) Supinated Foot Arch (R) High Arch PT-OP-K Range of Motion Start: 07/24/24 13:20 Freq: Status: Active Protocol: Document 07/25/24 08:05 KW (Rec: 07/25/24 09:51 KW [id number]) Lumbar Spine Range of Motion Lumbar Spine Active Flexion 45 Extension 70 Rotation Left 30 Rotation Right 40 ROM Limitations Soft Tissue Tightness,Muscle Tone Comments increased resting tone R SCM, scalenes, improved with sternum and diaphragm repositoining Shoulder Goniometric Range of Motion Shoulder ROM Limitations Shoulder ROM Muscle Weakness Limitations Comments decreased upward rotation of R > L scap with Sahrmann wall slide PT-OP-M Strength Start: 07/24/24 13:20 Freq: Status: Active Protocol: Document 10/16/24 09:08 KW (Rec: 10/16/24 09:31 KW Laptop) Trunk Strength Trunk Manual Muscle Testing Core Stabilization decreased recruitment of IO/TA with plank, push ups, tends to hold breath. Much improved with manual and verbal cues - much improved Comments B UE/LE motor 5/5 throughout PT-OP-Q Treatments Start: 07/24/24 13:20 Freq: Status: Active Protocol: Document 10/16/24 09:08 KW (Rec: 10/16/24 09:31 KW Laptop) Cardio Equipment Elliptical Duration (Minutes) 6 Resistance 3 Other 3 forward, 3 back Gym Equipment Shuttle Recovery jumps Resistance 67# Reps/Time x 10 single leg Details single leg Reps/Time 2 x 10 Bilateral Squats Details B squats Resistance 67# Reps/Time 3 x 10 Therapeutic Exercises Supine Exercises 1 Supine Exercise Name supine on foam roller, B scap protraction, retraction, shoulder circles, Side bilateral Equipment Used black foam roller Reps/Minutes 5 min Comments emphasis on lower ribs down in front, reduce lumbar extension Standing Exercises 1 Standing Exercise B UE wall slides with bandTing B Low Name trap recruitment Side bilateral Resistance light band Reps/Minutes 10 Comments emphasis on ribs DOWN in front, reduce lumbar extension , coordinate w/breat Other Exercises Plank Other Exercise Name Forearm plank Reps/Minutes 2 minutes Comments cued for core/glute engagmnt, press through shldrs, knee ext Bosu Ball/Pulleys Other Exercise Name BosuBall w/ pulleys vs TB: shldr ex & pallof press Side bilateral Resistance lvl 3 ([place]) tb Equipment Used resistance bands at wall, bosu ball Reps/Minutes several Comments pelvis alignment, level feet, chest lift into t/s ext/ neutral LE stretching Other Exercise Name Reviewed: quad, gastroc Side bilateral Equipment Used ba wedge B overhead, Sahrmann Other Exercise Name B UE wall slides with band around wrists, low trap pull away Reps/Minutes 10 Comments max cues to keep ribs down in front with IO/TA contraction CHUCK posterior expansion Other Exercise Name latt stretch in squat stance, both B and single R/L Equipment Used post/pole to hold/hang Reps/Minutes 3 x 30 sec each Comments used his phone to take a picture of form and technique 2 Other Exercise Name standing gastroc stretch with 1/2 foam roller, Side bilateral Reps/Minutes 30 sec holds Comments emphasis on neutral calc alignment as tends to roll to lateral calc 1 Other Exercise Name Reviewed: added threading the needle Side bilateral Reps/Minutes 5 breaths each Comments cues for shldr ER, core ext, palms up w greg pose Manual Therapy Treatment Manual Techniques 1 Type CHUCK manual repositoing of diaphragm, sternum, ribs, C spine, cranium Body Position Supine Reps/Duration 3 each Comments emphasis on nose breathing, lengthening exhale, pause at end of exhale Self-Care/Home Management Treatment Education Patient Education Home Exercise Program,Joint Protection,Pain Management, Posture PT-OP-T Assessment and Plan Start: 07/24/24 13:20 Freq: Status: Active Protocol: Document 10/16/24 09:08 KW (Rec: 10/16/24 09:31 KW Laptop) Physical Therapy Assessment Rehab Potential Rehabilitation Excellent Potential Evaluation Complexity Number of Personal 1-2 Factors/ Comorbidities Number of Body 1-2 Systems Impaired Clinical Stable Presentation at Evaluation Goals 3 Impairment CORE strength/recruitment 3/5 Short Term Goal (STG improve CORE 4/5, able to hold plank correct alignment ) 1 min - MET STG Duration 6 weeks Therapy Director Goal (LTG) hold 2 min 09/04/24: Pt held forearm plank for 2min, required cues to engage glutes, ext knees, push through shoulders and engage core to protect back. Visible shakiness. LTG Duration 12 weeks - MET 2 Impairment pain 5/10 Short Term Goal (STG reduce pain to 3/10 ) 09/04: Pt states pn is at a consistent 3-08/01 STG Duration 6 weeks - MET Therapy Director Goal (LTG) pain to LTG Duration 12 weeks - MET 1 Impairment LEFS 43% Short Term Goal (STG increase LEFS to 60% ) STG Duration 6 weeks Nursing Home Goal (LTG) increase LEFS to 80% LTG Duration 12 weeks - MET Assessment Summary Assessment goals MET, making good choices with nutrition, work/ life balance, mobility stretches. Appropriate for DC Physical Therapy Plan Discharge Physical Therapy Discharge Reasons Goals Met Discharge Comments patient pleased with progress
== END 2024-10-18 10:36 | disposition home or self-care (01) ==
LOC: PHYS 09:00
PROVIDERS: Family Provider Family Medicine; PCP Family Medicine; Referring Provider Family Medicine; Visit Provider Family Medicine
DX: G89.29 Other chronic pain (principal); M25.569 Pain in unspecified knee
CPT/HCPCS: 97110; 97140; 97161; 97530

== ENCOUNTER 2024-12-30 19:01 | Emergency (ER) | payer OTHER, SELFPAY ==
[2024-12-30 19:36] VITALS: BP 165/77; PULSE 56; RESP 16; TEMP 36.8; O2SAT 96; BMI 30.9
--- NOTE | 2024-12-30 19:42 | DI.RAD.S_ITS ---
PROCEDURE: XR ANKLE LT MIN 3V INDICATIONS: fall TECHNIQUE: 3 views of the ankle were acquired. COMPARISON: [facility], , XR FOOT LT MIN 3V, 12/30/2024, 20:00. FINDINGS: Bones: No fractures or dislocations. Ankle mortise is normally aligned. No suspicious bony lesions. Soft tissues: No tibiotalar joint effusion. Achilles tendon appears normal. IMPRESSION: No visualized acute fracture or dislocation. However, if clinical concern and/or pain persist, short interval imaging followup in 7-10 days is recommended, as occult injury cannot be definitively excluded. Dictated by: Sherry Moreira M.D. on 12/30/2024 at 20:50 Approved by: Sherry Moreira M.D. on 12/30/2024 at 20:50
--- NOTE | 2024-12-30 19:42 | DI.RAD.S_ITS ---
PROCEDURE: XR FOOT LT MIN 3V INDICATIONS: fall TECHNIQUE: 3 views of the foot were acquired. COMPARISON: [facility], CR, XR ANKLE LT MIN 3V, 12/30/2024, 20:00. FINDINGS: Bones: No fractures or dislocations. No suspicious bony lesions. Soft tissues: No tibiotalar joint effusion. Achilles tendon appears normal. IMPRESSION: No visualized acute fracture or dislocation. However, if clinical concern and/or pain persist, short interval imaging followup in 7-10 days is recommended, as occult injury cannot be definitively excluded. Dictated by: Sherry Moreira M.D. on 12/30/2024 at 20:50 Approved by: Sherry Moreira M.D. on 12/30/2024 at 20:50
--- NOTE | 2024-12-30 19:42 | DI.RAD.S_ITS ---
PROCEDURE: XR HAND RT MIN 3V INDICATIONS: fall TECHNIQUE: 3 views of the hand(s) acquired. COMPARISON: None. FINDINGS: Bones: No fractures or dislocations. Carpal bones are normally aligned. No suspicious bony lesions. Soft tissues: No suspicious soft tissue calcifications. IMPRESSION: No visualized acute fracture or dislocation. However, if clinical concern and/or pain persist, short interval imaging followup in 7-10 days is recommended, as occult injury cannot be definitively excluded. Dictated by: Sherry Moreira M.D. on 12/30/2024 at 20:51 Approved by: Sherry Moreira M.D. on 12/30/2024 at 20:51
--- NOTE | 2024-12-30 19:50 | PC.NURSE ---
Ice pack provided in triage. Pt declines dose of Tylenol at this time.
== END 2024-12-30 23:53 | disposition left against medical advice (07) ==
PROVIDERS: Emergency Provider Emergency Medicine; PCP Family Medicine
DX: S97.82XA Crushing injury of left foot, initial encounter (principal); W11.XXXA Fall on and from ladder, initial encounter
CPT/HCPCS: 73130; 73610; 73630; 99281

== ENCOUNTER → 2025-01-27 10:56 | Outpatient (CLI) | payer OTHER, SELFPAY ==
--- NOTE | 2025-01-27 10:58 | DI.RAD.S_ITS ---
PROCEDURE: XR WRIST LT MIN 3V INDICATIONS: r/o Fx TECHNIQUE: Four views of the wrist were acquired. COMPARISON: [facility], , XR WRIST LT MIN 3V, 09/28/2023, 16:07. FINDINGS: Bones: Chronic, displaced/nonunited ulnar styloid fracture. No visible acute fractures. Normal bone alignment. Soft tissues: No suspicious soft tissue calcifications. IMPRESSION: No acute fractures or malalignment. Dictated by: Amie Hendricks M.D. on 01/27/2025 at 12:21 Approved by: Amie Hendricks M.D. on 01/27/2025 at 12:23
--- NOTE | 2025-01-27 10:58 | DI.RAD.S_ITS ---
PROCEDURE: XR HAND LT MIN 3V INDICATIONS: r/o Fx TECHNIQUE: 3 views of the hand(s) acquired. COMPARISON: [facility], CR, XR HAND RT MIN 3V, 12/30/2024, 20:00. FINDINGS: Bones: No fractures or dislocations. Carpal bones are normally aligned. No suspicious bony lesions. Soft tissues: No suspicious soft tissue calcifications. IMPRESSION: No acute bony abnormality. Dictated by: Amie Hendricks M.D. on 01/27/2025 at 12:23 Approved by: Amie Hendricks M.D. on 01/27/2025 at 12:24
== END ==
PROVIDERS: PCP Family Medicine; Referring Provider Chiropractor; Visit Provider Chiropractor
DX: S63.92XA Sprain of unspecified part of left wrist and hand, initial encounter (principal); S63.502A Unspecified sprain of left wrist, initial encounter; S52.612S Displaced fracture of left ulna styloid process, sequela; X58.XXXA Exposure to other specified factors, initial encounter
CPT/HCPCS: 73110; 73130

== ENCOUNTER 2025-02-27 20:06 | Emergency (ER) | payer OTHER, SELFPAY ==
[2025-02-27] VITALS (9 sets, daily range): BP systolic 126–149; BP diastolic 79–94; PULSE 62–76; RESP 9–16; TEMP 36.9; O2SAT 93–96; BMI 30.3
--- NOTE | 2025-02-27 20:11 | DI.RAD.S_ITS ---
PROCEDURE: XR CHEST 1V
[2025-02-27] MEDS: ASPIRIN 81 MG CHEW TAB 324 MG PO (20:28)
[2025-02-27 20:53] LABS: INR 0.9 (0.9-1.3); Prothrombin Time 10.7 SECONDS (9.4-12.5)
[2025-02-27 20:57] LABS: Alanine Aminotransferase 49 IU/L (<50); Albumin 4.6 g/dL (3.5-5.0); Albumin Globulin Ratio 1.8 (1.0-2.8); Alkaline Phosphatase 81 U/L (38-126); Blood Urea Nitrogen 17 mg/dL (9-20); Calcium 9.2 mg/dL (8.4-10.2); Carbon Dioxide 23 mmol/L (22-32); Chloride 102 mmol/L (98-107); Creatine Kinase 1129 U/L (55-170); Estimated Glomerular Filt Rate > 60 mL/min (>60); Globulin 2.6 g/dL (1.7-4.1); Glucose 133 mg/dL (70-99); HEMOLYSIS 29 (0-50); Lipase 105 U/L (23-300); Magnesium 1.8 mg/dL (1.6-2.3); Potassium 4.0 mmol/L (3.4-5.1); Sodium 132 mmol/L (137-145); Total Protein 7.2 g/dL (6.3-8.2)
[2025-02-27 20:59] LABS: Add Manual Diff / Slide Review NO; Hematocrit 44.9 % (41-53); Hemoglobin 16.0 g/dL (13.5-17.5); Lymphocytes Absolute Auto 2500 /uL (1100-4500); Mean Corpuscular HGB Conc 35.8 % (30-36); Mean Corpuscular Hemoglobin 33.3 PG (26-34); Mean Corpuscular Volume 93.2 fL (80-100); Platelet Count 266 X10^3/uL (150-400)
[2025-02-27 21:03] LABS: PTT Partial Thromboplastin Tim 30 SECONDS (25.1-36.5)
[2025-02-27 21:08] LABS: NT-proBNP (BNP-Adult 18+) < 20 pg/mL (<125); Troponin I < 0.012 ng/mL (0.01-0.034)
--- NOTE | 2025-02-27 22:20 | ED_ITS ---
HPI - Chest Pain
--- NOTE | 2025-02-27 22:20 | ED.CHESTPAIN ---
HPI - Chest Pain General Chief Complaint: Chest Pain Stated Complaint: chest pain x10 min Time Seen by Provider: 02/27/25 22:13 Source: patient Mode of arrival: Ambulatory Limitations: no limitations History of Present Illness HPI narrative: Patient is a 44-year-old male past medical history hypertension comes into the ED from home for sudden onset chest pain started 10 minutes prior to arrival. Nothing making it better or worse no radiation denies any other symptoms such as headache visual disturbances shortness breath fever chills nausea vomiting abdominal pain or any other GI/ symptoms time. 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 He denies any other symptoms at this time. Related Data Home Medications ?Medication ?Instructions ?Recorded ?Confirmed metoprolol succinate 25 mg 25 mg PO BID PRN blood pressure 05/22/24 02/27/25 tablet,extended release 24 hr Previous Rx's ?Medication ?Instructions ?Recorded c-pap supplies #1 ea 10/16/23 Allergies Allergy/AdvReac Type Severity Reaction Status Date / Time No Known Drug Allergies Allergy Verified 02/27/25 20:11 Review of Systems Review of Systems Narrative: General: Denies fever, chills, weight loss HEENT: Denies headache, eye drainage, eye irritation, head trauma, sore throat, voice change Cardiovascular: Positive chest pain, denies palpitations, tachycardia Respiratory: Denies any shortness of breath, cough, wheeze, stridor GI/: Denies any abdominal pain, nausea, vomiting, diarrhea, bright red blood per rectum, melanotic stools, urinary frequency, urinary retention, dysuria, hematuria MSK: Denies any joint pain, muscle pains, swelling Skin: Denies any rashes, lesions, discoloration Neuro: Denies any headache, lightheadedness, dizziness, fainting, weakness Psych: Denies SI/HI Patient History Medical History Mild neurocognitive disorder due to traumatic brain injury Mixed hyperlipidemia TBI (traumatic brain injury) Depression (~2020) Anxiety (~2020) Migraines (~2006) Shoulder pain (~2009) Ankle pain (~1999) Chronic back pain (~2014) Vertigo (~2020) Hemorrhoid (~2006) Diverticular disease (~2006) Stress reaction Post concussion syndrome Benign essential HTN (~2006) MALLORIE on CPAP Social History Smoking Status: Never smoker alcohol intake: never Smoking Status: Never smoker Exam Narrative Exam Narrative: General: Cooperative, well-developed, not in acute distress HEENT: Normocephalic, atraumatic, PERRLA, normal sclera, eyelids normal Neck: Active full range of motion, atraumatic Chest: Normal to inspection, negative crepitus, no overlying erythema ecchymosis Respiratory: Normal respiratory effort, not in acute respiratory distress, clear to auscultation bilaterally negative cough, wheeze, tachypnea, rhonchi, rales Cardiology: Regular rate rhythm negative gallop, murmur, rubs GI/: No tenderness to palpation, soft, non rigid, normal to inspection, exam deferred MSK: Full active range of motion in all 4 extremities, atraumatic, no tenderness to palpation of any bony prominences Skin: No rashes or lesions noted Neuro: Alert awake oriented x3, moves all 4 extremities spontaneously, cranial nerves intact, able to answer all questions appropriately follows commands appropriately Psych: Cooperative, negative suicidal or homicidal ideations Initial Vital Signs Initial Vital Signs: Vital Signs Temperature 98.4 F 02/27/25 20:12 Pulse Rate 76 02/27/25 20:12 Respiratory Rate 16 02/27/25 20:12 Blood Pressure 144/94 H 02/27/25 20:12 Pulse Oximetry 96 02/27/25 20:12 Oxygen Delivery Method Room Air 02/27/25 20:12 Course Orders Ordered: ED Orders 02/27/25 20:11 XR chest 1V Stat EKG-12 Lead Stat 02/27/25 20:20 Complete Blood Count AUTO DIFF Stat Comprehensive Metabolic Panel Stat Lipase Stat Magnesium Stat NT-proBNP (BNP-Adult 18+) Stat PTT Partial Thromboplastin Jamel Stat Prothrombin Time INR Stat Troponin & CK Cardiac Panel Stat 02/27/25 22:16 Trop I [Troponin I] Stat Sodium Chloride (Normal Saline 0.9%) 1,000 mls @ 1,000 mls/hr IV BOLUS ONE Stop: 02/27/25 23:12 Discontinued Medications Aspirin (Aspirin 81 Mg Chew Tab) 324 mg PO NOW ONE Stop: 02/27/25 20:12 Last Admin: 02/27/25 20:28 Dose: 324 mg Documented By: AB Vital Signs Vital signs: Vital Signs - 8 hr 02/27/25 20:12 Temperature 98.4 F Pulse Rate 76 Respiratory Rate 16 Blood Pressure 144/94 H Pulse Oximetry 96 Oxygen Delivery Method Room Air MDM - Chest Pain Lab Data 02/27/25 20:20 02/27/25 20:20 Labs: Lab Results 02/27/25 Range/Units 20:20 WBC 6.6 (4.5-11.0) X10^3/uL RBC 4.81 (4.5-5.9) X10^6/uL Hgb 16.0 (13.5-17.5) g/dL Hct 44.9 (41-53) % MCV 93.2 (80-100) fL MCH 33.3 (26-34) PG MCHC 35.8 (30-36) % RDW 12.3 (11.6-14.8) % Plt Count 266 (150-400) X10^3/uL Neut % (Auto) 46.5 L (50-75) % Lymph % (Auto) 37.5 (25-40) % [place] % (Auto) 8.3 (3-14) % Eos % (Auto) 6.4 H (2-4) % Baso % (Auto) 1.3 (0-2) % Neut # (Auto) 3100 (8851-9625) /uL Lymph # (Auto) 2500 (3856-5276) /uL [place] # (Auto) 600 (0-900) /uL Eos # (Auto) 400 (0-450) /uL Baso # (Auto) 100 (0-100) /uL PT 10.7 (9.4-12.5) SECONDS INR 0.9 (0.9-1.3) APTT 30 (25.1-36.5) SECONDS Sodium 132 L (137-145) mmol/L Potassium 4.0 (3.4-5.1) mmol/L Chloride 102 (98-107) mmol/L Carbon Dioxide 23 (22-32) mmol/L BUN 17 (9-20) mg/dL Creatinine 0.74 (0.66-1.25) mg/dL Estimated GFR > 60 (>60) mL/min BUN/Creatinine Ratio 23.0 H (6-22) Glucose 133 H (70-99) mg/dL Calcium 9.2 (8.4-10.2) mg/dL Magnesium 1.8 (1.6-2.3) mg/dL Total Bilirubin 0.4 (0.2-1.3) mg/dL AST 49 (17-59) IU/L ALT 49 (<50) IU/L Alkaline Phosphatase 81 (38-126) U/L Total Creatine Kinase 1129 H (55-170) U/L Troponin I < 0.012 (0.01-0.034) ng/mL NT-Pro-B Natriuret Pep < 20 (<125) pg/mL Total Protein 7.2 (6.3-8.2) g/dL Albumin 4.6 (3.5-5.0) g/dL Globulin 2.6 (1.7-4.1) g/dL Albumin/Globulin Ratio 1.8 (1.0-2.8) Lipase 105 (23-300) U/L ECG Data Interpretation: EKG interpreted by ED physician, sinus 80 beats per minute QTC 445 QRS LA interval within normal limits no STEMI MDM Narrative Medical decision making narrative: 44-year-old male history of hypertension presenting for chest pain started sudden onset 10 minutes prior to arrival at time of evaluation no chest pain nonpleuritic in nature no radiation nonexertional. Patient was given full-dose aspirin here, he does mention that he was physically active over the past 24 hours which is more abnormal for him. Patient with a EKG nonischemic in nature chest x-ray without any acute cardiopulmonary abnormality, troponin negative x2, patient did have elevation in his CK at 1129, patient did receive 1 L normal saline bolus, creatinine normal, patient symptoms more likely secondary to this, patient with a heart score of 1, he will be discharged home with outpatient follow up Cardiology follow up as needed he was given strict return precautions verbalized understanding agrees to being discharged home with outpatient follow up Discharge Plan Departure Patient Disposition: Home Clinical Impression: Chest pain, Non-traumatic rhabdomyolysis Instructions: DI for Chest Pain, DI for Rhabdomyolysis Activity Restrictions/Additional Instructions: Please follow up with your primary care doctor, continue to stay hydrated, follow up with Cardiology as needed Please read the discharge instructions sheet carefully and bring all papers to all doctor follow-up visits, as it may contain information that your doctor may want to see. Disease processes change and evolve, if your symptoms worsen or if you develop any new symptoms that are concerning to you please return for evaluation. Your evaluation today does not show any evidence of any life-threatening/serious illnesses requiring admission to the hospital or surgery. Please follow-up with your doctor for re-evaluation in approximately 1 day. Seek immediate medical attention for any worrisome symptoms. *If you do not have a primary care provider please contact the [facility] Resource line at [phone]. They will ask some questions about your medical history and help get you set up with a doctor in the community. Prescriptions: No Action metoprolol succinate 25 mg tablet extended release 24 hr 25 mg PO BID PRN (Reason: blood pressure) Rx Instructions: 1 po daily, 1 po in addition daily PRN (DME) c-pap supplies See Rx Instructions .Route .MEDSUPPLY Qty: 1 0RF Rx Instructions: nasal pillow per pt preference, tubing, filters and all other supplies needed for cpap Referrals: Nathan Rodriguez DO [Primary Care Provider, Family Practice] Stand Alone Forms: Patient Portal/API
[2025-02-27] MEDS: SODIUM CHLORIDE 0.9% 1,000 ML 1000 ML IV (22:23)
[2025-02-27 22:57] LABS: Troponin I < 0.012 ng/mL (0.01-0.034)
== END 2025-02-27 23:41 | disposition home or self-care (01) ==
PROVIDERS: Emergency Provider Student in an Organized Health Care Education/Training Program; PCP Family Medicine
DX: R07.9 Chest pain, unspecified (principal); M62.82 Rhabdomyolysis
CPT/HCPCS: 36415; 71045; 80053; 82550; 83690; 83735; 83880; 84484; 85025; 85610; 85730; 93005; 96360; 99284; J7030

== ENCOUNTER → 2025-04-07 07:52 | Outpatient (CLI) | payer OTHER, SELFPAY ==
[2025-04-07 08:17] LABS: Hemoglobin A1C% w Est Avg Glu 5.2 % (4.0-6.0)
[2025-04-07 08:25] LABS: Blood Urea Nitrogen 16 mg/dL (9-20); Calcium 9.0 mg/dL (8.4-10.2); Carbon Dioxide 24 mmol/L (22-32); Chloride 107 mmol/L (98-107); Cholesterol 190 mg/dL (140-199); Creatine Kinase 194 U/L (55-170); Estimated Glomerular Filt Rate > 60 mL/min (>60); Glucose 106 mg/dL (70-99); HDL Cholesterol 63 mg/dL (40-60); HEMOLYSIS < 15 (0-50); Potassium 4.4 mmol/L (3.4-5.1); Sodium 138 mmol/L (137-145); Triglycerides 136 mg/dL (35-150)
[2025-04-08 17:22] LABS: HIV 1 & 2 Ab/Ag 4th Gen Combo NEGATIVE (NEGATIVE); Hep C Virus Ab w/Reflex Quant NEGATIVE s/c (NEGATIVE)
== END ==
PROVIDERS: PCP Family Medicine; Referring Provider Family Medicine; Visit Provider Family Medicine
DX: E78.2 Mixed hyperlipidemia (principal); G47.33 Obstructive sleep apnea (adult) (pediatric); I10 Essential (primary) hypertension; R73.01 Impaired fasting glucose; M62.82 Rhabdomyolysis; M79.642 Pain in left hand; Z11.59 Encounter for screening for other viral diseases; Z11.4 Encounter for screening for human immunodeficiency virus [HIV]; Z99.89 Dependence on other enabling machines and devices
CPT/HCPCS: 36415; 80048; 80061; 82550; 83036; 86803; 87389

== ENCOUNTER → 2025-04-07 12:11 | Outpatient (CLI) | payer OTHER, SELFPAY ==
[2025-04-07 13:00] LABS: Appearance Urine UA CLEAR; Bilirubin Urine UA NEGATIVE (NEGATIVE); Color Urine UA YELLOW; Glucose Urine UA NEGATIVE (Negative); Ketones Urine UA NEGATIVE (NEGATIVE); Leukocyte Esterase Urine UA NEGATIVE (NEGATIVE); Nitrite Urine UA NEGATIVE (Negative); Occult Blood Urine UA NEGATIVE (Negative); Protein Urine UA NEGATIVE (Negative); Specific Gravity Urine UA 1.020 (1.000-1.035); Urobilinogen Urine UA 0.2 E.U./dL (0.2); pH Urine UA 6.5 (4.5-8.0)
[2025-04-07 13:03] LABS: Culture Indicated Urine Cult Not Indicated
== END ==
PROVIDERS: PCP Family Medicine; Referring Provider Family Medicine; Visit Provider Family Medicine
DX: M62.82 Rhabdomyolysis (principal); I10 Essential (primary) hypertension; E78.2 Mixed hyperlipidemia; M79.642 Pain in left hand
CPT/HCPCS: 36415; 80048; 80061; 81001; 82550; 83036; 86803; 87389